=== PATIENT | male | born 1940 | race Caucasian/White ===

== ENCOUNTER 2018-01-30 17:46 | Inpatient (IN) | payer MEDICARE, OTHER ==
[2018-01-30] VITALS (7 sets, daily range): BP systolic 146–175; BP diastolic 75–92; PULSE 67–80; RESP 16–18; TEMP 98.5; O2SAT 96–97
[~2018-01-30] VITALS: Ht 177.8 cm; Wt 89.2 kg
[~2018-01-30 17:46] MED LIST: CHOL1CAP6 PO; CITRTAB8 PO; FOSA70TA PO; HYDR-3129 PO
[2018-01-30] MEDS ORDERED: CALCTAB80 PO (19:49)
[2018-01-30] MEDS ORDERED: MELO15TA20 PO (19:49)
[2018-01-30 20:16] LABS: AUTOMATED NEUTROPHIL # 5.4 TH/MM3 (1.8-7.7); BASOPHIL % 0.5 % (0.0-2.0); EOSINOPHIL # 0.1 TH/MM3 (0-0.4); EOSINOPHIL % 0.6 % (0.0-4.0); HEMATOCRIT 41.5 % (39.0-51.0); HEMOGLOBIN 14.4 GM/DL (13.0-17.0); LYMPH % 25.8 % (9.0-44.0); LYMPHOCYTE # 2.2 TH/MM3 (1.0-4.8); MEAN CELL VOLUME 90.5 FL (80.0-100.0); MEAN CORPUSCULAR HEMOGLOBIN 31.4 PG (27.0-34.0); MEAN CORPUSCULAR HGB CONC 34.7 % (32.0-36.0); MEAN PLATELET VOLUME 7.2 FL (7.0-11.0); MONO % 10.4 % (0.0-8.0); MONOCYTE # 0.9 TH/MM3 (0-0.9); NEUT % 62.7 % (16.0-70.0); PLATELET COUNT 331 TH/MM3 (150-450); RED BLOOD COUNT 4.58 MIL/MM3 (4.50-5.90); RED CELL DISTRIBUTION WIDTH 13.2 % (11.6-17.2); WHITE BLOOD COUNT 8.7 TH/MM3 (4.0-11.0)
[2018-01-30 20:23] LABS: PROTHROMBIN TIME - PATIENT 9.8 SEC (9.8-11.6)
--- NOTE | 2018-01-30 20:38 | RADRPT ---
EXAM DATE/TIME: 01/30/2018 20:01 [facility] COMPARISON: No previous studies available for comparison. INDICATIONS : Weakness. Syncope. MEDICAL HISTORY : None. SURGICAL HISTORY : None. ENCOUNTER: Initial ACUITY: 1 day PAIN SCORE: 2/10 LOCATION: Bilateral chest FINDINGS: A single view of the chest demonstrates the lungs to be symmetrically aerated without evidence of mas s, infiltrate or effusion. The cardiomediastinal contours are unremarkable. Osseous structures are intact. CONCLUSION: No acute disease. Luis Kumar MD FACR on January 30, 2018 at 20:36 Board Certified Radiologist. This report was verified electronically.
[2018-01-30 20:44] LABS: ALBUMIN 3.6 GM/DL (3.4-5.0); AST (GOT) 15 U/L (15-37); BICARBONATE 24.5 MEQ/L (21.0-32.0); BLOOD UREA NITROGEN 20 MG/DL (7-18); CALCIUM 9.2 MG/DL (8.5-10.1); CHLORIDE 102 MEQ/L (98-107); GLOMERULAR FILTRATION RATE 54 ML/MIN (>89); GLUCOSE,RANDOM 101 MG/DL (74-106); MAGNESIUM 2.3 MG/DL (1.5-2.5); SODIUM (NA) 135 MEQ/L (136-145)
[2018-01-30 20:45] LABS: ALT (GPT) 18 U/L (12-78)
[2018-01-30 20:55] LABS: ALKALINE PHOSPHATASE 90 U/L (45-117); TOTAL BILIRUBIN ADULT 0.6 MG/DL (0.2-1.0); TOTAL PROTEIN 7.2 GM/DL (6.4-8.2)
[2018-01-30] MEDS ORDERED: DEXAMETHASONE SOD PHOS 4 MG/ML VIAL IV PUSH ONE (21:00)
[2018-01-30] MEDS ORDERED: ACETAMINOPHEN 325 MG TAB PO PRN (21:30)
[2018-01-30] MEDS ORDERED: POTASSIUM PHOSPHATE INJ 30 MMOL in SODIUM CHLOR 0.9% 250 ML INJ 250 ML IV PRN (21:30)
[2018-01-30] MEDS ORDERED: GLUCAGON 1 MG/ML VIAL OTHER PRN (21:30)
[2018-01-30] MEDS ORDERED: SODIUM CHLORIDE 0.9% FLUSH 10 ML FLUSH IV FLUSH PRN (21:30)
[2018-01-30] MEDS ORDERED: POTASSIUM PHOSPHATE MONOBASIC 500 MG TAB PO PRN (21:30)
[2018-01-30] MEDS ORDERED: POTASSIUM CHLORIDE 25 MEQ EFFERVESCENT TAB PO PRN (21:30)
[2018-01-30] MEDS ORDERED: MAGNESIUM HYDROXIDE SUSP 30 ML CUP PO PRN (21:30)
[2018-01-30] MEDS ORDERED: POTASSIUM CHLOR 20 MEQ PREMIX 100 ML IV PRN ×2 (21:30)
[2018-01-30] MEDS ORDERED: RESP: ALBUTEROL 2.5 MG/3 ML NEB (PRN) INH (21:30)
[2018-01-30] MEDS ORDERED: LACTULOSE SYRUP 20 GM/30 ML CUP PO PRN (21:30)
[2018-01-30] MEDS ORDERED: MISCELLANEOUS NURSING INFORMATION XX SCH (21:30)
[2018-01-30] MEDS ORDERED: CHLORHEXIDINE GLUCONATE 2 % 1 PACK (2 CLOTHS) TOP PRN (21:30)
[2018-01-30] MEDS ORDERED: ONDANSETRON HCL 4 MG/2 ML VIAL IV PUSH PRN (21:30)
[2018-01-30] MEDS ORDERED: MAGNESIUM SULFATE INJ 2 GM in SODIUM CHLORIDE 0.9% INJ 96 ML IV PRN (21:30)
[2018-01-30] MEDS ORDERED: SODIUM PHOSPHATE INJ 30 MMOL in SODIUM CHLOR 0.9% 250 ML INJ 240 ML IV PRN (21:30)
[2018-01-30] MEDS ORDERED: DEXTROSE 50% IN WATER 50 ML VIAL(D50) IV PUSH PRN (21:30)
[2018-01-30] MEDS ORDERED: POTASSIUM CHLOR 40 MEQ PREMIX 100 ML IV PRN ×2 (21:30)
[2018-01-30] MEDS ORDERED: POTASSIUM PHOSPHATE MONOBASIC 500 MG TAB PO/TUBE PRN (21:30)
[2018-01-30] MEDS ORDERED: MAGNESIUM OXIDE 400 MG TAB PO PRN (21:30)
[2018-01-30] MEDS ORDERED: MAGNESIUM SULFATE INJ 4 GM in SODIUM CHLORIDE 0.9% INJ 92 ML IV PRN (21:30)
[2018-01-30] MEDS ORDERED: SENNOSIDES 8.6 MG TAB PO PRN (21:30)
[2018-01-30] MEDS ORDERED: BISACODYL 10 MG SUPP RECTAL PRN (21:30)
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
[2018-01-30] MEDS ORDERED: GADODIAMIDE PF 287 MG/ML 5 ML VIAL (for RAD MRI) IVCONTRAST ONE (21:49)
--- NOTE | 2018-01-30 22:22 | RADRPT ---
EXAM DATE/TIME: 01/30/2018 21:32 [facility] COMPARISON: No previous studies available for comparison. INDICATIONS : Left sided weakness. Tumor CONTRAST: 18 cc Omniscan (gadodiamide) IV MEDICAL HISTORY : Hypertension. Arthritis. SURGICAL HISTORY : Total knee replacement, right. Back sx. ENCOUNTER: Initial ACUITY: 1 day PAIN SCORE: Nonresponsive. LOCATION: cranial TECHNIQUE: Multiplanar, multisequence MRI of the brain was performed both prior to and following the administrat ion of paramagnetic contrast. FINDINGS: Large ring-enhancing mass in the right proximal region with extensive edema and mass effect. There i s 1.2 cm of [id number] midline shift with effacement of the right lateral ventricle. Enhancement extends to the ventricle with areas of subtle enhancement of the ventricular wall suggest ing seeding. Tumor does extend to the dural surface in the proximal upper region with dural involvement as well The left hemisphere is unremarkable Posterior fossa appears normal CONCLUSION: Large ring-enhancing mass right occipital region region measuring 5 cm x 5 cm.. Mass extends from ventricle to the dural surface with involvement of both. 1.2 cm right to left midline shift Glioblastoma is suspected. Luis Kumar MD FACR on January 30, 2018 at 22:13 Board Certified Radiologist. This report was verified electronically.
[2018-01-30] MEDS: NS + KCL 20 MEQ INJ 1,000 ML IV SCH (22:38)
[2018-01-31] VITALS (11 sets, daily range): BP systolic 131–173; BP diastolic 69–94; PULSE 58–80; RESP 14–26; TEMP 97.7–98.6; O2SAT 95–97
[2018-01-31] MEDS: CHLORHEXIDINE GLUCONATE 2 % 1 PACK (2 CLOTHS) TOP SCH (04:00)
[2018-01-31] MEDS: DEXAMETHASONE SOD PHOS 4 MG/ML VIAL IV PUSH SCH ×5 (04:25→23:48)
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
[2018-01-31] MEDS: INSULIN ASPART SUPPLEMENTAL SCALE SQ SCH ×4 (08:20→21:00)
[2018-01-31] MEDS: levETIRAcetam INJ 500 MG in SODIUM CHLORIDE 0.9% INJ 100 ML IV SCH ×2 (09:55→21:01)
[2018-01-31] MEDS: DOCUSATE SODIUM 50 MG/SENNA 8.6 MG TAB PO SCH ×2 (09:56→21:01)
[2018-01-31] MEDS: PANTOPRAZOLE SOD 40 MG DELAYED RELEASE TAB PO SCH (09:56)
[2018-01-31] MEDS: NS + KCL 20 MEQ INJ 1,000 ML IV SCH (09:57)
[2018-01-31] MEDS: SODIUM CHLORIDE 0.9% FLUSH 10 ML FLUSH IV FLUSH SCH ×2 (09:57→21:01)
[2018-01-31] MEDS ORDERED: LABETALOL HCL 100 MG/20 ML VIAL IV PUSH PRN (10:15)
[2018-01-31] MEDS ORDERED: PROMETHAZINE INJ 25 MG/ML VIAL IM PRN (10:15)
[2018-01-31] MEDS ORDERED: ACETAMINOPHEN/HYDROcodone 325 MG/10 MG TAB PO PRN ×2 (10:15)
[2018-01-31] MEDS ORDERED: BISACODYL 10 MG SUPP RECTAL PRN (10:15)
[2018-01-31] MEDS ORDERED: RESP: ALBUTEROL 2.5 MG/3 ML NEB (PRN) NEB (10:15)
[2018-01-31] MEDS ORDERED: LORazepam 2 MG/ML VIAL IV PUSH PRN (10:15)
[2018-01-31] MEDS ORDERED: cloNIDine HCL 0.1 MG TAB PO PRN (10:15)
[2018-01-31] MEDS ORDERED: ACETAMINOPHEN 325 MG TAB PO PRN (10:15)
[2018-01-31] MEDS ORDERED: ALUMINUM/MAGNESIUM/SIMETH 30 ML CUP PO PRN (10:15)
[2018-01-31] MEDS ORDERED: niCARdipine INJ 25 MG in SODIUM CHLOR 0.9% 250 ML INJ 240 ML IV PRN (10:15)
[2018-01-31] MEDS ORDERED: MENTHOL LOZENGE BUCCAL PRN (10:15)
[2018-01-31] MEDS ORDERED: MORPHINE SULFATE 2 MG/ML SYRINGE IV PUSH PRN (10:15)
--- NOTE | 2018-01-31 11:11 | MB ---
cc: Anjum Gallegos MD, James R DO DATE: 01/31/2018 REASON FOR CONSULTATION: Right brain mass. HISTORY OF PRESENT ILLNESS: This is a 77-year-old, right-handed, gentleman with about a 1-week history of confusion and left-sided weakness along with visual loss. Symptoms have progressed the last few days and he was seen by his primary care physician, who ordered a CT scan of the head which was done in the outpatient imaging center revealed a right-sided brain mass. He was informed to come to the emergency room last evening. He also relates intermittent headaches in the frontal aspect and sinus aspect and has had a cough. relates that generally he does not complain. He has a chronic lower back pain at times, sciatica involving both lower extremities. IMAGING STUDIES: MRI scan of the brain also obtained, which reveals a large close to 6.4 cm right occipital lobe mass, which extends into the parietal lobe and temporal lobe involving from the cortical surface down to the ventricle and close to the mid brain with irregular enhancement and central areas of necrosis with significant surrounding edema and mass effect, midline shift. He was started on Decadron for the edema and Keppra for seizure prophylaxis. PAST MEDICAL HISTORY: S1 hemilaminectomy in 10/2015, right knee replacement. MEDICATIONS: Meloxicam p.r.n., and calcium and vitamin D supplements. ALLERGIES: No known drug allergies. SOCIAL HISTORY: He does drinks alcohol on a rare occasion. He does not smoke. He is here with his and son. REVIEW OF SYSTEMS: Positive for headaches, positive for left-sided visual loss. Positive for left side weakness in the arm and legs with difficulty controlling his left hand and unsteady walking because of the weakness. Complains of chronic low back pain, complaint of sciatica involving the right leg but varies from left to right at times. He still works out 3 times a week. Complains of nonproductive cough, but no hemoptysis. Denies any chest pain or shortness of breath. Denies any abdominal pain. Denies any nausea or vomiting. Denies any loose stools or bloody stools. No fevers or chills. No recent weight gain or weight loss. No incontinence. He has had some difficulty with concentration and word finding and confused speech according to , which has been going on for the last 5 days. Otherwise, the rest of the review of systems is negative. LABORATORY STUDIES: White blood cell count 8.7, hemoglobin 14.4, platelet count 331. PT 9.8, INR 1.0, PTT 23.9. Sodium 135, potassium 3.9, BUN 20, creatinine 1.3, glucose 101. FAMILY HISTORY: Unremarkable. PHYSICAL EXAMINATION: VITAL SIGNS: Temperature 98.5, pulse is 74, respiratory rate 24, blood pressure 141/69, oxygen saturation 96% on room air. HEENT: Head is normocephalic, atraumatic. Negative Pinzon or raccoon sign. NECK: Supple with trachea midline. No guarding or rigidity. HEENT: No nasal drainage or drainage from his ears. Mucous membranes are moist and pink. LUNGS: Clear to auscultation bilaterally. HEART: Regular rate and rhythm. Normal S1, S2. No murmurs. ABDOMEN: Soft, nontender, positive bowel sounds. No hepatosplenomegaly. EXTREMITIES: No cyanosis or edema. SKIN: No rashes or ecchymosis or breakdown or pustules. NEUROLOGIC: He is awake, alert. He knows he is in the hospital, not fully oriented to the date and states his name. Pupils are equal and reactive. Extraocular movements are intact. Face has a slight left-sided facial droop. Tongue is midline. He has a left hemiparesis, 4-/5 in the left upper extremity and 4/5 in the left lower extremity. Right-sided arm and leg has good strength. Positive Babinski on the left side. He has a left homonymous hemianopsia, with visual field loss. He also tends to neglect the left side. Light touch sensation relates that he does not feel as strongly on the left side compared to the right side. He also has difficulty following complex commands, although can follow simple commands intermittently with moderate aphasia. IMPRESSION: Large right posterior temporoparietal occipital lobe mass extending from the cortex to the subcortical deep white matter structures down to the ventricle with finger-like projections and enhancement and necrotic areas along with associated edema. 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 Other possibilities in the differential diagnosis include metastases, as well as abscess and inflammatory process, which are less likely. PLAN: The patient will be monitored closely with neuro checks. Keep his head of bed elevated at 30 degrees. Decadron will be continued for the cerebral swelling and Keppra for seizure prophylaxis. Mechanical deep venous thrombosis prophylaxis along with a gastrointestinal source as a prophylaxis. He is recommended a right craniotomy with excisional biopsy/debulking. Aggressive resection will not be feasible given the large mass and very infiltrative nature with cortical and subcortical extension. Further treatment options will depend on the final pathologic confirmation of this brain mass. I have discussed the findings at length with the patient as well as his and son and answered all their questions. They understand and are in agreement and we will plan for the surgery early next week. MD LYN Raya/KERRY , 10:31 AM , 11:09 AM
[2018-01-31] MEDS ORDERED: DIATRIZOATE MEGLUM/DIATRIZOATE SOD 9 ML CUP PO ONE (13:30)
--- NOTE | 2018-01-31 14:22 | MB ---
cc: Maira Tovar MD, Ricardo PA DATE: 01/31/2018 REFERRING PHYSICIAN: CHRISTOPHER Ash CHIEF COMPLAINT: Harpreet Zimmerman requested consultation for Mr. Krishna regarding MASTIC FLOOR LAYER lesion. HISTORY OF PRESENT ILLNESS: Mr. Krishna is a 77-year-old man with history of radiculopathy, back pain. Otherwise, he is healthy. He is active, going to the gym several times a week. His family noticed on 01/25/2018 that he was driving abnormal. He looked different. He had some nonspecific visual change on the right side. Outpatient workup included a CT scan of the brain with and without contrast on 01/30/2018 which showed a large mass with patchy enhancement. It was ill-defined with significant vasogenic edema with right to left shift. It was consistent with a malignant process such as a glioma. Neurosurgical consultation was recommended. He was promptly referred to the hospital for evaluation. Mr. Krishna is well known to Dr. Gallegos. He has had a laminectomy and medial fasciotomy in 2016. He was comfortable to see Dr. Gallegos in the hospital. He was started on Decadron in the emergency room. He is feeling better. Mr. Krishna describes having good strength. He denies any vision changes at present. Denies any fevers, chills, night sweats or weight loss. He was feeling well until about Easter. He denies any nausea or vomiting. He trusts Dr. Gallegos and is planning to proceed with a surgical biopsy even though full resection may not be possible. PAST MEDICAL HISTORY: Radiculopathy, back pain. PAST SURGICAL HISTORY: Right knee replacement, L5-S1 hemilaminectomy. FAMILY HISTORY: Father of esophageal/lung cancer at age 58. Mother of old at age 89. SOCIAL HISTORY: He is a lifetime nonsmoker. He is , lives with his . He denies any alcohol or illicit drug use. ALLERGIES: NO KNOWN DRUG ALLERGIES. CURRENT MEDICATIONS: 1. Lorazepam p.r.n. 2. Phenergan. 3. Clifford. 4. Viviane-Colace. 5. Protonix. 6. Keppra. PHYSICAL EXAMINATION: VITAL SIGNS: Temperature 98.5, heart rate 74, respiratory rate 24, blood pressure 141/69, saturation 97%. GENERAL: Mr. Krishna is a well-developed, well-nourished, robust, elderly man with a full head of lush white hair. HEENT: His pupils are round, reactive to light and accommodation. Oropharynx is clear. NECK: Supple. LUNGS: Clear. CARDIOVASCULAR: Reveals normal rate and rhythm. ABDOMEN: Large and benign. EXTREMITIES: No edema. NEUROLOGIC: He appears to have good strength of his upper extremity. There is a slight left facial droop. Initially noted left-sided weakness is less evident. LABORATORY DATA: CBC is normal. CMP, normal liver function and TSH. ASSESSMENT AND PLAN: Mr. Krishna is a 77-year-old man with no significant past history. He has had no previous illness, injury. Denies any history of malignant melanoma or smoking. He has an MRI of the brain from 01/30/2018 which shows a ring-enhancing mass, right occipital region measuring 5 x 5 cm. The mass extends from the ventricle to the dural surface with involvement of both. There is a right to left midline shift. He is pending surgery for definitive diagnosis. Further recommendations depend on the above. We consider consulting with Radiation Oncology pending on the results of the biopsy. We are suspecting from the images, this is a glioma. Given the nonsmoker status, the possibility of fabrizio cancer is less likely. CT scan of the chest, abdomen and pelvis will be coordinated. MD RAFY Green/KERRY , 01:02 PM , 02:21 PM
--- NOTE | 2018-01-31 19:28 | EKG ---
Date Performed: 01/30/2018 Time Performed: 22:21:36 PTAGE: 77 years EKG: Sinus rhythm WITH FIRST DEGREE AV BLOCK INDETERMINATE AXIS RIGHT BUNDLE BRANCH BLOCK Since the previous tracing, no significant change noted ABNORMAL ECG PREVIOUS TRACING : 11/09/2015 11.46 DOCTOR: Lyndon Jimenez Interpretating Date/Time 01/31/2018 19:28:01
--- NOTE | 2018-01-31 21:11 | RADRPT ---
EXAM DATE/TIME: 01/31/2018 20:33 [facility] COMPARISON: MRI BRAIN W & W/O CONTRAST, January 30, 2018, 21:32. INDICATIONS : Mass, evaluate for metastasis of brain mass. ORAL CONTRAST: Prescribed oral contrast ingested. RADIATION DOSE: 18.25 CTDIvol (mGy) ; Combined studies - Thorax/Abdomen/Pelvis MEDICAL HISTORY : Hypertension. scoliosis SURGICAL HISTORY : None. ENCOUNTER: Initial ACUITY: 1 day PAIN SCALE: 0/10 LOCATION: Bilateral abdomen TECHNIQUE: Volumetric scanning of the abdomen and pelvis was performed. Using automated exposure control and ad justment of the mA and/or kV according to patient size, radiation dose was kept as low as reasonably achievable to obtain optimal diagnostic quality images. DICOM format image data is available electro nically for review and comparison. FINDINGS: LOWER LUNGS: The visualized lower lungs are clear. LIVER: There are 2 small 1 cm hypodensities seen in the liver in the lateral segment of the left lobe and th e anterior segment of the right lobe of the liver. SPLEEN: Normal size without lesion. PANCREAS: Within normal limits. KIDNEYS: Bilateral nonobstructing renal stones are seen measuring up to 1.2 cm. The largest stone is at the in ferior left collecting system. Hydronephrosis is not seen. The ureters are unremarkable. ADRENAL GLANDS: Within normal limits. VASCULAR: There is no aortic aneurysm. BOWEL/MESENTERY: There are few scattered colonic diverticula. ABDOMINAL WALL: Within normal limits. RETROPERITONEUM: There is no lymphadenopathy. BLADDER: No wall thickening or mass. REPRODUCTIVE: Prostatic calcifications are seen. INGUINAL: There is no lymphadenopathy or hernia. MUSCULOSKELETAL: There are compressive changes at the T12, L2, and L5 vertebral bodies. There is degenerative change i n the lumbar spine. CONCLUSION: 1. No evidence of metastatic disease or primary mass. 2. Nonobstructing renal stones seen bilaterally. 3. Degenerative change and compressive changes in the lower thoracic and lumbar spine. Underlying bon e lesions are not seen. 4. Small hypodensities in the liver. Statistically, they likely represent cysts or hemangiomas. These are nonspecific on this noncontrast CT examination. Damian Wu MD on January 31, 2018 at 21:01 Board Certified Radiologist. This report was verified electronically.
--- NOTE | 2018-01-31 21:14 | RADRPT ---
EXAM DATE/TIME: 01/31/2018 20:33 [facility] COMPARISON: No previous studies available for comparison. INDICATIONS : Mass, evaluate for metastasis of brain mass. RADIATION DOSE: 18.25 CTDIvol (mGy) ; Combined studies - Thorax/Abdomen/Pelvis MEDICAL HISTORY : Hypertension. scoliosis SURGICAL HISTORY : None. ENCOUNTER: Initial ACUITY: 1 day PAIN SCALE: 0/10 LOCATION: Bilateral chest TECHNIQUE: Volumetric scanning of the chest was performed. Using automated exposure control and adjustment of t he mA and/or kV according to patient size, radiation dose was kept as low as reasonably achievable to obtain optimal diagnostic quality images. DICOM format image data is available electronically for r eview and comparison. Follow-up recommendations for detected pulmonary nodules are based at a minimum on nodule size and pa tient risk factors according to Fleischner Society Guidelines. FINDINGS: LUNGS: There is no consolidation or pneumothorax. No concerning pulmonary nodule is visualized. PLEURAE: There is no pleural thickening or pleural effusion. MEDIASTINUM: The heart and great vessels demonstrate no acute abnormality. There is no mediastinal or hilar lymph adenopathy. AXILLAE: Within normal limits. No lymphadenopathy. MUSCULOSKELETAL: There is a severe compression deformity of the T12 vertebral body. Focal bone lesions are not seen. MISCELLANEOUS: The visualized upper abdominal organs demonstrate no acute abnormality. Nonobstructing renal stones a re seen bilaterally. CONCLUSION: 1. No primary or metastatic lesion is seen. 2. Compression deformity T12. Damian Wu MD on January 31, 2018 at 21:09 Board Certified Radiologist. This report was verified electronically.
[2018-02-01] VITALS (12 sets, daily range): BP systolic 113–130; BP diastolic 62–76; PULSE 50–86; RESP 16–27; TEMP 97.6–98.6; O2SAT 94–97
[2018-02-01] MEDS: CHLORHEXIDINE GLUCONATE 2 % 1 PACK (2 CLOTHS) TOP SCH (04:00)
[2018-02-01] MEDS: DEXAMETHASONE SOD PHOS 4 MG/ML VIAL IV PUSH SCH ×3 (05:56→18:03)
--- NOTE | 2018-02-01 08:44 | HHI.NSPN ---
(Max Pinon) History Chief Complaint: brain mass, confusion. (Max Pinon) Interval History This is a 77-year-old, right-handed, gentleman with about a 1-week history of confusion and left-sided weakness along with visual loss. Symptoms have progressed the last few days and he was seen by his primary care physician, who ordered a CT scan of the head which was done in the outpatient imaging center revealed a right-sided brain mass. He was informed to come to the emergency room last evening. He also relates intermittent headaches in the frontal aspect and sinus aspect and has had a cough. relates that generally he does not complain. He has a chronic lower back pain at times, sciatica involving both lower extremities. 02/01/18: Pt awakens to voice. Son at bedside states the patient was very confused this morning trying to get out of bed. He became very agitated and confused. He is currently calm and resting in bed although still some confusion. (Max Pinon) Review of Systems General: Negative for: fever, chills, insomnia Respiratory: Negative for: shortness of breath, cough, sputum Cardiovascular: Negative for: chest pain Gastrointestinal: Negative for: nausea, vomitting, diarrhea, constipation ( Max Pinon) Exam Results Vital Signs Date Time Temp Pulse Resp B/P (MAP) Pulse Ox O2 Delivery O2 Flow Rate FiO2 02/01/18 06:00 54 02/01/18 04:00 98.6 20 113/62 (79) 94 01/31/18 19:00 Room Air Intake and Output 02/01/18 02/01/18 02/01/18 07:59 15:59 23:59 Output Total 600 ml Balance -600 ml (Max Pinon) Physical Examination General: Patient resting in bed awakens to voice. He is confused but not agitated at the moment. Eyes: Pupils equal sclera anicteric. Respiratory: Clear to auscultation bilaterally Heart: Normal sinus rhythm no murmurs. Abdomen: Soft positive bowel sounds Skin: No cyanosis or erythema Muscle: He moves all 4 extremities. He has left hemiparesis compared to the right side. Neuro: Patient awakens to voice. He follows simple commands. He has mild to moderate expressive aphasia. Pupils are 3 mm bilaterally reactive bilaterally. (Max Pinon) Lab, Micro, Other Results Last Impressions Chest CT 01/31/18 0000 Signed Impressions: Service Date/Time: Wednesday, January 31, 2018 20:33 - CONCLUSION: 1. No primary or metastatic lesion is seen. 2. Compression deformity T12. Damian Wu MD Abdomen/Pelvis CT 01/31/18 0000 Signed Impressions: Service Date/Time: Wednesday, January 31, 2018 20:33 - CONCLUSION: 1. No evidence of metastatic disease or primary mass. 2. Nonobstructing renal stones seen bilaterally. 3. Degenerative change and compressive changes in the lower thoracic and lumbar spine. Underlying bone lesions are not seen. 4. Small hypodensities in the liver. Statistically, they likely represent cysts or hemangiomas. These are nonspecific on this noncontrast CT examination. Damian Wu MD Chest X-Ray 01/30/181938 Signed Impressions: Service Date/Time: Tuesday, January 30, 2018 20:01 - CONCLUSION: No acute disease. Luis Kumar MD FACR Brain MRI 01/30/18 0000 Signed Impressions: Service Date/Time: Tuesday, January 30, 2018 21:32 - CONCLUSION: Large ring-enhancing mass right occipital region region measuring 5 cm x 5 cm.. Mass extends from ventricle to the dural surface with involvement of both. 1.2 cm right to left midline shift Glioblastoma is suspected. Luis Kumar MD FACR (Max Pinon) Medical Decision Making Impression and Plan A: Large right posterior temporoparietal occipital lobe mass extending from the cortex to the subcortical deep white matter structures down to the ventricle with finger-like projections and enhancement and necrotic areas along with associated edema. 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 Other possibilities in the differential diagnosis include metastases, as well as abscess and inflammatory process, which are less likely. PLAN: Continue with neuro checks Continue with Decadron Continue with SCDs for DVT prophylaxis and Protonix for GI prophylaxis. Dr. Gallegos has discussed with family surgery. He has recommended a right craniotomy with excisional biopsy/debulking. Aggressive resection will not be feasible given the large mass and very infiltrative nature with cortical and subcortical extension. Further treatment options will depend on the final pathologic confirmation of this brain mass. I discussed with another son at the bedside this child welfare director. (Max Pinon) Attending Statement The exam, history, and the medical decision-making described in the above note were completed with the assistance of the mid-level provider. I reviewed and agree with the findings presented. I attest that I had a [id number] encounter with the patient on the same day, and personally performed and documented my assessment and findings in the medical record. Discussed the procedure right craniotomy with the excisional biopsy along with the risks and benefits involved. Patient and his and son are requesting to proceed and gave informed consent and accordingly surgery scheduled for tomorrow morning. (Anjum Gallegos MD) Max Pinon Feb 01, 2018 08:44 Anjum Gallegos MD Feb 01, 2018 15:48
[2018-02-01] MEDS: INSULIN ASPART SUPPLEMENTAL SCALE SQ SCH ×4 (09:00→21:00)
[2018-02-01] MEDS: DOCUSATE SODIUM 50 MG/SENNA 8.6 MG TAB PO SCH ×2 (09:58→20:16)
[2018-02-01] MEDS: levETIRAcetam INJ 500 MG in SODIUM CHLORIDE 0.9% INJ 100 ML IV SCH ×2 (09:58→20:16)
[2018-02-01] MEDS: PANTOPRAZOLE SOD 40 MG DELAYED RELEASE TAB PO SCH (09:58)
[2018-02-01] MEDS: SODIUM CHLORIDE 0.9% FLUSH 10 ML FLUSH IV FLUSH SCH ×2 (09:58→20:16)
--- NOTE | 2018-02-01 13:05 | ECHRPT ---
Indication: CONCLUSIONS Normal left ventricular size. Mild concentric left ventricular hypertrophy. Doppler parameters are consistent with impaired left ventricular relaxtion (grade 1 diastolic dysfun ction). The right ventricle is mildly dilated. The right ventricular systoilc function is normal. The pulmonary valve is not well visualized. The left ventricular systolic function is normal with an estimated ejection fraction in the range of 60-65%. BP: / HR: Rhythm: MEASUREMENTS (Male / Female) Normal Values Technical Quality: 2D ECHO LV Diastolic Diameter PLAX 4.0 cm 4.2 - 5.9 / 3.9 - 5.3 cm LV Systolic Diameter PLAX 3.1 cm IVS Diastolic Thickness 0.9 cm 0.6 - 1.0 / 0.6 - 0.9 cm LVPW Diastolic Thickness 0.7 cm 0.6 - 1.0 / 0.6 - 0.9 cm LV Relative Wall Thickness 0.4 RV Internal Dim ED PLAX 2.4 cm LA Systolic Diameter LX 3.5 cm 3.0 - 4.0 / 2.7 - 3.8 cm DOPPLER Mitral E Point Velocity 58.2 cm/s Mitral A Point Velocity 76.0 cm/s Mitral E to A Ratio 0.8 TR Peak Velocity 141.0 cm/s TR Peak Gradient 8.0 mmHg FINDINGS LEFT VENTRICLE Normal left ventricular size. Mild concentric left ventricular hypertrophy. The left ventricular systolic function is normal with an estimated ejection fraction in the range of 60-65%. Doppler parameters are consistent with impaired left ventricular relaxtion (grade 1 diastolic dysfun ction). RIGHT VENTRICLE The right ventricle is mildly dilated. The right ventricular systoilc function is normal. LEFT ATRIUM The left atrial size is normal. RIGHT ATRIUM The right atrial size is normal. ATRIAL SEPTUM Normal atrial septal thickness without atrial level shunting by limited color doppler interrogation. AORTA The aortic root and proximal ascending aorta are normal in size on limited imaging. MITRAL VALVE Structurally normal mitral valve. No mitral valve stenosis or regurgitation. AORTIC VALVE Trileaflet aortic valve. No aortic valve stenosis or regurgitation. TRICUSPID VALVE Structurally normal tricuspid valve. No tricuspid valve stenosis or regurgitation. PULMONARY VALVE The pulmonary valve is not well visualized. VESSELS The inferior vena cava is normal in size. PERICARDIUM No pericardial effusion. Foreign Puentes MD, FACC (Electronically Signed) Final Date:01 February 2018 13:04
[2018-02-02] VITALS (11 sets, daily range): BP systolic 116–141; BP diastolic 60–76; PULSE 49–76; RESP 17–26; TEMP 97.8–98.2; O2SAT 94–96
[2018-02-02] MEDS: DEXAMETHASONE SOD PHOS 4 MG/ML VIAL IV PUSH SCH ×4 (00:10→19:00)
[2018-02-02] MEDS: CHLORHEXIDINE GLUCONATE 2 % 1 PACK (2 CLOTHS) TOP SCH (04:00)
[2018-02-02] MEDS: INSULIN ASPART SUPPLEMENTAL SCALE SQ SCH ×4 (08:00→21:29)
[2018-02-02] MEDS: SODIUM CHLORIDE 0.9% FLUSH 10 ML FLUSH IV FLUSH SCH ×2 (08:45→21:00)
[2018-02-02] MEDS: DOCUSATE SODIUM 50 MG/SENNA 8.6 MG TAB PO SCH ×2 (08:45→21:00)
[2018-02-02] MEDS: PANTOPRAZOLE SOD 40 MG DELAYED RELEASE TAB PO SCH (08:45)
[2018-02-02] MEDS: levETIRAcetam INJ 500 MG in SODIUM CHLORIDE 0.9% INJ 100 ML IV SCH ×2 (08:45→21:00)
[2018-02-02] MEDS ORDERED: GENTAMICIN SULFATE 80 MG/2 ML VIAL ONE ×2 (10:51→13:44)
[2018-02-02] MEDS ORDERED: GELFOAM SIZE 100 ONE ×2 (10:51→13:44)
[2018-02-02] MEDS ORDERED: THROMBIN (TOPICAL) 5,000 UNIT VIAL ONE ×2 (10:52→13:44)
[2018-02-02] MEDS ORDERED: BUPIVACAINE/EPINEPHRINE 0.5% 50 ML VIAL ONE ×2 (10:52→13:44)
[2018-02-02] MEDS ORDERED: VANCOMYCIN HCL 1000 MG VIAL ONE ×2 (11:38→13:43)
[2018-02-02] MEDS ORDERED: GLYCOPYRROLATE 1 MG/5 ML SYRINGE IV PUSH ONE (12:00)
[2018-02-02] MEDS ORDERED: ONDANSETRON HCL 4 MG/2 ML VIAL IV ONE (12:00)
[2018-02-02] MEDS ORDERED: PROPOFOL 200 MG/20 ML AMP IV ONE (12:00)
[2018-02-02] MEDS ORDERED: PHENYLEPH/NS 1000 MCG/10 ML SYR IV ONE (12:00)
[2018-02-02] MEDS ORDERED: LIDOCAINE HCL 1% PF 5 ML SYRINGE OTHER ONE (12:00)
[2018-02-02] MEDS ORDERED: ROCURONIUM INJ 50 MG/5 ML SYRINGE IV PUSH ONE (12:00)
[2018-02-02] MEDS ORDERED: DEXAMETHASONE SOD PHOS 4 MG/ML VIAL IV ONE (12:00)
[2018-02-02] MEDS ORDERED: ePHEDrine/NS 25 MG/5 ML SYRINGE IV ONE (12:00)
[2018-02-02] MEDS ORDERED: NEOSTIGMINE 5 MG/5 ML SYRINGE IV PUSH ONE (12:00)
[2018-02-02] MEDS ORDERED: levETIRAcetam 500 MG/5 ML VIAL IV ONE (12:03)
[2018-02-02] MEDS ORDERED: SODIUM CHLORIDE 0.9% INJ 100 ML ONE (12:05)
[2018-02-02] MEDS ORDERED: ACETAMINOPHEN 1000 MG/100 ML 0 ML IV ONE (12:26)
--- NOTE | 2018-02-02 13:39 | OTSOAPIP ---
TIME SESSION COMPLETED: PM TREATMENT TIME: 0 MINS. CHART REVIEWED. PATIENT WAS NOT AVAILABLE DUE TO BEING THE OPERATING ROOM TO UNDERGO RIGHT CRANIOTOMY FOR TUMOR RESECTION. PLAN: WILL SEE PATIENT NEXT TREATMENT DAY Therapist: MARISA YE/Di Signature on file
--- NOTE | 2018-02-02 13:55 | PD.OP ---
Eric Santanajune, DO Operative Report Date of Surgery: Feb 02, 2018 Preoperative Diagnosis: Right the temporoparietal occipital lobe mass Postoperative Diagnosis: High-grade glioma Procedure: Right temporoparietal craniotomy for resection of mass; BrainLab stereotactic navigation use; microsurgical technique Anesthesia: Gen. endotracheal by Diane bee Surgeon: Anjum Gallegos M.D. Photogrammetry Airplane Pilot(s): Jennifer Loera Operation and Findings: Following initiation of general endotracheal anesthesia the patient had invasive lines and An catheter in place along with sequential compression device. A gram of vancomycin and Keppra as well as 10 mg Decadron was administered intravenously and he was positioned laterally with the right shoulder elevated with an axillary roll roll and head secured in the [place] 3 pin headrest. The BrainLab navigation system was then registered with external landmarks and good accuracy confirmed. A right parietal temporal incision made after the head shaved and prepped with ChloraPrep and sterilely draped in the usual sterile fashion. Incision was then made after infiltrating the scalp was 0.5% Marcaine with epinephrine solution a skin incision made and Stanislav clips were used at the scalp edges for hemostasis and the flap retracted. With an automated event marketing coordinator a posterior temporal bur hole made and then with the craniotome the bone flap was elevated. The dura opened in a cruciate format and bone holes placed in the craniotomy edges with 4-0 Nurolon dural tacking stitches for hemostasis. The mass approach the cortical surface more posteriorly on the temporoparietal area and pial blackish brownish discoloration was noted. Resection of this mass was undertaken using microtechnique microscope magnification along with the BrainLab navigation guidance. The mass extended up to the pial surface but there was no distinct border between the brain and the mass and was very infiltrative in nature. Initial debulking undertaken in the middle where the vas was grayish in coloration and somewhat necrotic and subsequent circumferential dissection although more superiorly this was extending into the more cortex and subcortical motor pathways so very aggressive gross total resection was not undertaken. Fresh frozen specimen sent was consistent with high-grade glioma and rest of the specimens were sent for permanent pathology sections although most of the mass was suctioned out. Bipolar cautery used for hemostasis in the resection bed which was then lined with Surgicel and no bleeding was encountered at this point. Cavity was filled with saline solution and the dura approximately using 4 Nurolon sutures with a central dural tacking stitch. Bone flap approximated using [place] mini plates and bur hole covers. The area was then copiously irrigated. The temporalis fascia was approximated and using 2-0 Vicryl sutures and the galea reapproximated using 3-0 Vicryl interrupted sutures and final scalp closure was with michael. The Diaz head was then removed and a sterile pressing dressing applied. There were no intraoperative complications and all sponge and needle count was correct at the end of the procedure. Estimated blood loss about 100 cc. Patient was extubated and taken to the recovery room. Anjum Gallegos MD Feb 02, 2018 13:55
[2018-02-02 14:53] LABS: AUTOMATED NEUTROPHIL # 9.9 TH/MM3 (1.8-7.7); HEMATOCRIT 40.4 % (39.0-51.0); HEMOGLOBIN 13.6 GM/DL (13.0-17.0); LYMPH % 7.2 % (9.0-44.0); LYMPHOCYTE # 0.8 TH/MM3 (1.0-4.8); MEAN CELL VOLUME 91.5 FL (80.0-100.0); MEAN CORPUSCULAR HEMOGLOBIN 30.7 PG (27.0-34.0); MEAN CORPUSCULAR HGB CONC 33.5 % (32.0-36.0); MEAN PLATELET VOLUME 7.3 FL (7.0-11.0); MONO % 3.8 % (0.0-8.0); MONOCYTE # 0.4 TH/MM3 (0-0.9); PLATELET COUNT 297 TH/MM3 (150-450); RED BLOOD COUNT 4.42 MIL/MM3 (4.50-5.90); RED CELL DISTRIBUTION WIDTH 13.8 % (11.6-17.2); WHITE BLOOD COUNT 11.2 TH/MM3 (4.0-11.0)
[2018-02-02 15:27] LABS: BICARBONATE 24.1 MEQ/L (21.0-32.0); CALCIUM 7.9 MG/DL (8.5-10.1); CREATININE 1.1 MG/DL (0.60-1.30); MAGNESIUM 2.2 MG/DL (1.5-2.5)
[2018-02-03] VITALS (9 sets, daily range): BP systolic 114–150; BP diastolic 65–84; PULSE 50–76; RESP 17–33; TEMP 97.5–98.7; O2SAT 91–95
[2018-02-03] MEDS: DEXAMETHASONE SOD PHOS 4 MG/ML VIAL IV PUSH SCH ×5 (00:27→23:46)
[2018-02-03] MEDS: CHLORHEXIDINE GLUCONATE 2 % 1 PACK (2 CLOTHS) TOP SCH (04:00)
[2018-02-03] MEDS: INSULIN ASPART SUPPLEMENTAL SCALE SQ SCH ×4 (08:00→21:00)
--- NOTE | 2018-02-03 09:24 | HHI.NSPN ---
(Max Pinon) History Chief Complaint: brain mass, confusion. (Max Pinon) Interval History This is a 77-year-old, right-handed, gentleman with about a 1-week history of confusion and left-sided weakness along with visual loss. Symptoms have progressed the last few days and he was seen by his primary care physician, who ordered a CT scan of the head which was done in the outpatient imaging center revealed a right-sided brain mass. He was informed to come to the emergency room last evening. He also relates intermittent headaches in the frontal aspect and sinus aspect and has had a cough. relates that generally he does not complain. He has a chronic lower back pain at times, sciatica involving both lower extremities. 02/01/18: Pt awakens to voice. Son at bedside states the patient was very confused this morning trying to get out of bed. He became very agitated and confused. He is currently calm and resting in bed although still some confusion. 02/03/18: Pt s/p right temporoparietal craniotomy for mass resection on 02/02/18. Pt mild confusion but pleasant. He follows commands well. Speech mild aphasia. Mild incisional soreness. Son at bedside thinks he will be okay without narcotic medication. (Max Pinon) Review of Systems General: Negative for: fever, chills, insomnia Respiratory: Negative for: shortness of breath, cough, sputum Cardiovascular: Negative for: chest pain Gastrointestinal: Negative for: nausea, vomitting, diarrhea, constipation ( Max Pinon) Exam Results Vital Signs Date Time Temp Pulse Resp B/P (MAP) Pulse Ox O2 Delivery O2 Flow Rate FiO2 02/03/18 07:00 93 Room Air 02/03/18 06:00 62 02/03/18 04:00 98.4 17 132/76 (94) 02/02/18 14:45 2 Intake and Output 02/03/18 02/03/18 02/04/18 08:00 16:00 00:00 Intake Total 850 ml Output Total 800 ml Balance 50 ml (Max Pinon) Physical Examination General: Patient resting in bed awake and alert in NAD. Eyes: Pupils equal sclera anicteric. Respiratory: Clear to auscultation bilaterally Heart: Normal sinus rhythm no murmurs. Abdomen: Soft positive bowel sounds Skin: No cyanosis or erythema. Right craniotomy incision is clean and dry without signs of infection or complication. Muscle: He moves all 4 extremities. His strength appears improved on left side than before, mild weakness. Neuro: Patient awakens to voice. He follows simple commands. He has mild expressive aphasia. Pupils are 3 mm bilaterally reactive bilaterally. (Max Pinon) Lab, Micro, Other Results Last Impressions Chest CT 01/31/18 0000 Signed Impressions: Service Date/Time: Wednesday, January 31, 2018 20:33 - CONCLUSION: 1. No primary or metastatic lesion is seen. 2. Compression deformity T12. Damian Wu MD Abdomen/Pelvis CT 01/31/18 0000 Signed Impressions: Service Date/Time: Wednesday, January 31, 2018 20:33 - CONCLUSION: 1. No evidence of metastatic disease or primary mass. 2. Nonobstructing renal stones seen bilaterally. 3. Degenerative change and compressive changes in the lower thoracic and lumbar spine. Underlying bone lesions are not seen. 4. Small hypodensities in the liver. Statistically, they likely represent cysts or hemangiomas. These are nonspecific on this noncontrast CT examination. Damian Wu MD Chest X-Ray 01/30/18 193 Signed Impressions: Service Date/Time: Tuesday, January 30, 2018 20:01 - CONCLUSION: No acute disease. Luis Kumar MD FACR Brain MRI 01/30/18 0000 Signed Impressions: Service Date/Time: Tuesday, January 30, 2018 21:32 - CONCLUSION: Large ring-enhancing mass right occipital region region measuring 5 cm x 5 cm.. Mass extends from ventricle to the dural surface with involvement of both. 1.2 cm right to left midline shift Glioblastoma is suspected. Luis Kumar MD FACR Laboratory Tests Test 02/02/18 14:20 White Blood Count 11.2 TH/MM3 Red Blood Count 4.42 MIL/MM3 Hemoglobin 13.6 GM/DL Hematocrit 40.4 % Mean Corpuscular Volume 91.5 FL Mean Corpuscular Hemoglobin 30.7 PG Mean Corpuscular Hemoglobin Concent 33.5 % Red Cell Distribution Width 13.8 % Platelet Count 297 TH/MM3 Mean Platelet Volume 7.3 FL Neutrophils (%) (Auto) 89.0 % Lymphocytes (%) (Auto) 7.2 % Monocytes (%) (Auto) 3.8 % Eosinophils (%) (Auto) 0.0 % Basophils (%) (Auto) 0.0 % Neutrophils # (Auto) 9.9 TH/MM3 Lymphocytes # (Auto) 0.8 TH/MM3 Monocytes # (Auto) 0.4 TH/MM3 Eosinophils # (Auto) 0.0 TH/MM3 Basophils # (Auto) 0.0 TH/MM3 CBC Comment DIFF FINAL Differential Comment Blood Urea Nitrogen 22 MG/DL Creatinine 1.10 MG/DL Random Glucose 159 MG/DL Calcium Level 7.9 MG/DL Magnesium Level 2.2 MG/DL Sodium Level 140 MEQ/L Potassium Level 4.1 MEQ/L Chloride Level 105 MEQ/L Carbon Dioxide Level 24.1 MEQ/L Anion Gap 11 MEQ/L Estimat Glomerular Filtration Rate 65 ML/MIN (Max Pinon) Medical Decision Making Impression and Plan A: Large right posterior temporoparietal occipital lobe mass extending from the cortex to the subcortical deep white matter structures down to the ventricle with finger-like projections and enhancement and necrotic areas along with associated edema. 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 Other possibilities in the differential diagnosis include metastases, as well as abscess and inflammatory process, which are less likely. S/p right craniotomy for mass resection. PLAN: Continue with neuro checks Continue with Decadron Continue with SCDs for DVT prophylaxis and Protonix for GI prophylaxis. Tylenol for pain per family and pts request. OOB with PT to chair. d/c An catheter. (Max Pinon) Attending Statement The exam, history, and the medical decision-making described in the above note were completed with the assistance of the mid-level provider. I reviewed and agree with the findings presented. I attest that I had a [id number] encounter with the patient on the same day, and personally performed and documented my assessment and findings in the medical record. Doing well postoperatively. Await final pathology results. Increase activity status as tolerated. Updated at bedside. (Anjum Gallegos MD) Max Pinon Feb 03, 2018 09:24 Anjum Gallegos MD Feb 03, 2018 13:48
[2018-02-03] MEDS: levETIRAcetam INJ 500 MG in SODIUM CHLORIDE 0.9% INJ 100 ML IV SCH ×2 (10:03→21:05)
[2018-02-03] MEDS: SODIUM CHLORIDE 0.9% FLUSH 10 ML FLUSH IV FLUSH SCH ×2 (10:03→21:00)
[2018-02-03] MEDS: PANTOPRAZOLE SOD 40 MG DELAYED RELEASE TAB PO SCH (10:04)
[2018-02-03] MEDS: DOCUSATE SODIUM 50 MG/SENNA 8.6 MG TAB PO SCH ×2 (10:04→21:05)
[2018-02-03] MEDS ORDERED: ACETAMINOPHEN 500 MG CPLT PO PRN (10:45)
--- NOTE | 2018-02-03 19:39 | PD.ONC.PN ---
Subjective Subjective Remarks "I walked outside in the [place] today." No headaches, trouble with finding words. Objective Data Date Time Temp Pulse Resp B/P (MAP) Pulse Ox O2 Delivery O2 Flow Rate FiO2 02/03/18 16:00 98.7 63 26 123/69 (87) 93 02/03/18 12:00 98.2 70 25 126/65 (85) 91 02/03/18 08:00 97.5 65 28 150/84 (106) 95 02/03/18 07:00 93 Room Air 02/03/18 06:00 62 02/03/18 04:00 50 02/03/18 04:00 98.4 50 17 132/76 (94) 94 02/03/18 02:00 52 02/03/18 00:00 54 02/03/18 00:00 98.6 54 19 131/71 (91) 95 02/02/18 22:00 56 02/02/18 20:00 98.2 72 26 141/76 (97) 94 02/02/18 20:00 72 02/03/18 02/03/18 02/03/18 06:59 14:59 22:59 Intake Total 850 ml 300 ml Output Total 800 ml 675 ml Balance 50 ml -375 ml Result Diagram: 02/02/18 1420 02/02/18 1420 Administered Medications Medications (Trade) Dose Ordered Sig/[place] Route PRN Reason Start Time Stop Time Status Last Admin Dose Admin Sodium Chloride (NS Flush) 2 ml BID IV FLUSH 01/31/18 09:00 02/03/18 10:03 Senna/Docusate Sodium (Viviane-Colace) 1 tab BID PO 01/31/18 09:00 02/03/18 10:04 Pantoprazole Sodium (Protonix) 40 mg DAILY PO 01/31/18 09:00 02/03/18 10:04 Dexamethasone Sodium Phosphate (Decadron Inj) 4 mg Q6HR IV PUSH 01/31/18 03:00 02/03/18 18:14 Insulin Aspart (NovoLOG SUPPLEMENTAL SCALE) 1 ACHS SLIDING SCALE SQ 01/31/18 08:00 02/03/18 18:14 Levetriacetam 500 mg/Sodium Chloride 105 ml @ 420 mls/hr Q12HR IV 01/31/18 09:00 02/03/18 10:03 Menthol ([place]) 1 lozenge UNSCH PRN BUCCAL SORE THROAT 01/31/18 10:15 02/02/18 19:38 Objective Remarks GENERAL: Well-nourished, well-developed patient. SKIN: Warm and dry. [place] along scar in posterior parietal R side. HEAD: Normocephalic. EYES: No scleral icterus. No injection or drainage. NECK: Supple, trachea midline. No JVD or lymphadenopathy. LYMPHATIC: No adenopathy. CARDIOVASCULAR: Regular rate and rhythm without murmurs. RESPIRATORY: Breath sounds equal bilaterally. No accessory muscle use. GASTROINTESTINAL: Abdomen soft, non-tender, nondistended. EXTREMITIES: No cyanosis, or edema. MUSCULOSKELETAL: Adequate muscle tone. NEUROLOGICAL: Weakness in L side. Awake, alert, and oriented x3. Mild aphasia. Assessment/Plan Problem List: (1) Brain mass ICD Codes: G93.9 - Disorder of brain, unspecified Status: Acute Plan: Frozen section glioma, final pathology pending. Discussed coordination of tx with rad onc for concurrent chemo / XRT. Assessment 77 y/o man with brain mass possible glioma. Plan 1. Consult rad onc. 2. Await final pathology. Maira Tovar MD Feb 03, 2018 19:39
[2018-02-04] VITALS (10 sets, daily range): BP systolic 102–179; BP diastolic 60–81; PULSE 50–76; RESP 18–26; TEMP 97.5–98.8; O2SAT 97–98
[2018-02-04] MEDS: CHLORHEXIDINE GLUCONATE 2 % 1 PACK (2 CLOTHS) TOP SCH ×2 (04:00→23:06)
[2018-02-04] MEDS: DEXAMETHASONE SOD PHOS 4 MG/ML VIAL IV PUSH SCH ×4 (06:00→23:08)
[2018-02-04] MEDS: INSULIN ASPART SUPPLEMENTAL SCALE SQ SCH ×4 (08:00→21:28)
[2018-02-04] MEDS: SODIUM CHLORIDE 0.9% FLUSH 10 ML FLUSH IV FLUSH SCH ×2 (08:21→21:30)
[2018-02-04] MEDS: levETIRAcetam INJ 500 MG in SODIUM CHLORIDE 0.9% INJ 100 ML IV SCH ×2 (08:21→21:31)
[2018-02-04] MEDS: PANTOPRAZOLE SOD 40 MG DELAYED RELEASE TAB PO SCH (08:22)
[2018-02-04] MEDS: DOCUSATE SODIUM 50 MG/SENNA 8.6 MG TAB PO SCH ×2 (08:22→21:30)
--- NOTE | 2018-02-04 09:53 | HHI.NSPN ---
History Chief Complaint: brain mass, confusion. Interval History This is a 77-year-old, right-handed, gentleman with about a 1-week history of confusion and left-sided weakness along with visual loss. Symptoms have progressed the last few days and he was seen by his primary care physician, who ordered a CT scan of the head which was done in the outpatient imaging center revealed a right-sided brain mass. He was informed to come to the emergency room last evening. He also relates intermittent headaches in the frontal aspect and sinus aspect and has had a cough. relates that generally he does not complain. He has a chronic lower back pain at times, sciatica involving both lower extremities. 02/01/18: Pt awakens to voice. Son at bedside states the patient was very confused this morning trying to get out of bed. He became very agitated and confused. He is currently calm and resting in bed although still some confusion. 02/03/18: Pt s/p right temporoparietal craniotomy for mass resection on 02/02/18. Pt mild confusion but pleasant. He follows commands well. Speech mild aphasia. Mild incisional soreness. Son at bedside thinks he will be okay without narcotic medication. 02/04/18: Pt awake and alert. Sitting up in chair. Mild aphasia. Pt appreciative of care being provided. Review of Systems General: Negative for: fever, chills, insomnia Respiratory: Negative for: shortness of breath, cough, sputum Cardiovascular: Negative for: chest pain Gastrointestinal: Negative for: nausea, vomitting, diarrhea, constipation Exam Results Vital Signs Date Time Temp Pulse Resp B/P (MAP) Pulse Ox O2 Delivery O2 Flow Rate FiO2 02/04/18 06:00 68 02/04/18 04:00 98.2 22 156/76 (102) 97 02/03/18 19:00 Room Air 02/02/18 14:45 2 Intake and Output 02/04/18 02/04/18 02/05/18 08:00 16:00 00:00 Intake Total 500 ml Balance 500 ml Physical Examination General: Patient sitting up in bed awake and alert in NAD. Eyes: Pupils equal sclera anicteric. Respiratory: Clear to auscultation bilaterally Heart: Normal sinus rhythm no murmurs. Abdomen: Soft positive bowel sounds Skin: No cyanosis or erythema. Right craniotomy incision is clean and dry without signs of infection or complication. Muscle: He moves all 4 extremities. His strength is improving on left side than before, mild weakness. Neuro: Patient awakens to voice. He follows simple commands. He has mild expressive aphasia. Pupils are 3 mm bilaterally reactive bilaterally. Lab, Micro, Other Results Last Impressions Chest CT 01/31/18 Signed Impressions: Service Date/Time: Wednesday, January 31, 2018 20:33 - CONCLUSION: 1. No primary or metastatic lesion is seen. 2. Compression deformity T12. Damian Wu MD Abdomen/Pelvis CT 01/31/18 Signed Impressions: Service Date/Time: Wednesday, January 31, 2018 20:33 - CONCLUSION: 1. No evidence of metastatic disease or primary mass. 2. Nonobstructing renal stones seen bilaterally. 3. Degenerative change and compressive changes in the lower thoracic and lumbar spine. Underlying bone lesions are not seen. 4. Small hypodensities in the liver. Statistically, they likely represent cysts or hemangiomas. These are nonspecific on this noncontrast CT examination. Damian Wu MD Chest X-Ray 01/30/181938 Signed Impressions: Service Date/Time: Tuesday, January 30, 2018 20:01 - CONCLUSION: No acute disease. Luis Kumar MD FACR Brain MRI 01/30/18 Signed Impressions: Service Date/Time: Tuesday, January 30, 2018 21:32 - CONCLUSION: Large ring-enhancing mass right occipital region region measuring 5 cm x 5 cm.. Mass extends from ventricle to the dural surface with involvement of both. 1.2 cm right to left midline shift Glioblastoma is suspected. Luis Kumar MD FACR Medical Decision Making Impression and Plan A: Large right posterior temporoparietal occipital lobe mass extending from the cortex to the subcortical deep white matter structures down to the ventricle with finger-like projections and enhancement and necrotic areas along with associated edema. 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 Other possibilities in the differential diagnosis include metastases, as well as abscess and inflammatory process, which are less likely. S/p right craniotomy for mass resection. PLAN: Continue with neuro checks Continue with Decadron Continue with SCDs for DVT prophylaxis and Protonix for GI prophylaxis. Tylenol for pain per family and pts request. Transfer to [facility] Feb 04, 2018 9:53 am
--- NOTE | 2018-02-04 13:58 | PD.ONC.PN ---
Subjective Subjective Remarks Afebrile overnight. Patient resting in room with . denies pain or headache. walking with assistance now. excited that he is going to a regular floor today. Objective Data Date Time Temp Pulse Resp B/P (MAP) Pulse Ox O2 Delivery O2 Flow Rate FiO2 02/04/18 12:00 62 02/04/18 10:00 69 02/04/18 07:00 96 Room Air 02/04/18 06:00 68 02/04/18 04:00 64 02/04/18 04:00 98.2 64 22 156/76 (102) 97 02/04/18 02:00 50 02/04/18 00:00 66 02/04/18 00:00 98.6 66 26 139/80 (99) 97 02/03/18 22:00 58 02/03/18 20:00 76 02/03/18 20:00 98.1 76 33 114/71 (85) 94 02/03/18 19:00 94 Room Air 02/03/18 16:00 98.7 63 26 123/69 (87) 93 02/04/18 02/04/18 02/04/18 07:00 15:00 23:00 Intake Total 500 ml Balance 500 ml Result Diagram: 02/02/18 1420 02/02/18 1420 Administered Medications Medications (Trade) Dose Ordered Sig/[place] Route PRN Reason Start Time Stop Time Status Last Admin Dose Admin Sodium Chloride (NS Flush) 2 ml BID IV FLUSH 01/31/18 09:00 02/04/18 08:21 Senna/Docusate Sodium (Viviane-Colace) 1 tab BID PO 01/31/18 09:00 02/04/18 08:22 Pantoprazole Sodium (Protonix) 40 mg DAILY PO 01/31/18 09:00 02/04/18 08:22 Dexamethasone Sodium Phosphate (Decadron Inj) 4 mg Q6HR IV PUSH 01/31/18 03:00 02/04/18 06:00 Insulin Aspart (NovoLOG SUPPLEMENTAL SCALE) 1 ACHS SLIDING SCALE SQ 01/31/18 08:00 02/03/18 21:00 Levetriacetam 500 mg/Sodium Chloride 105 ml @ 420 mls/hr Q12HR IV 01/31/18 09:00 02/04/18 08:21 Labetalol HCl (Trandate Inj) 10 mg Q1H PRN IV PUSH SYS BP GREATER THAN 170 MMHG 01/31/18 10:15 02/04/18 08:22 Menthol ([place]) 1 lozenge UNSCH PRN BUCCAL SORE THROAT 01/31/18 10:15 02/02/18 19:38 Objective Remarks GENERAL: Elderly male, sitting up in chair in nad. SKIN: Warm and dry. HEAD: Normocephalic. EYES: No injection or drainage. NECK: Supple, trachea midline. CARDIOVASCULAR: Regular rate and rhythm RESPIRATORY: Breath sounds equal bilaterally. No accessory muscle use. GASTROINTESTINAL: Abdomen soft, non-tender, nondistended. EXTREMITIES: No cyanosis, NEUROLOGICAL: awake and alert. normal speech. moving extremities. Assessment/Plan Problem List: (1) Brain mass ICD Codes: G93.9 - Disorder of brain, unspecified Status: Acute Plan: 02/04: final path remains pending. discussed with patient that we will arrange follow up in clinic after rehab. Frozen section glioma, final pathology pending. Discussed coordination of tx with rad onc for concurrent chemo / XRT. Assessment 77 y/o man with brain mass possible glioma. Plan 1. face sheet faxed to new patient referrals for follow up the week after next ( after discharge from rehab.) 2. oncology clear for discharge 3. continue supportive care Mary Villalpando Feb 04, 2018 13:58
[2018-02-05] VITALS (8 sets, daily range): BP systolic 120–173; BP diastolic 73–89; PULSE 54–93; RESP 16–20; TEMP 97.2–98.7; O2SAT 96–97
[2018-02-05] MEDS: DEXAMETHASONE SOD PHOS 4 MG/ML VIAL IV PUSH SCH ×4 (04:36→22:30)
[2018-02-05] MEDS: INSULIN ASPART SUPPLEMENTAL SCALE SQ SCH ×4 (08:00→22:30)
[2018-02-05] MEDS: DOCUSATE SODIUM 50 MG/SENNA 8.6 MG TAB PO SCH ×2 (09:00→22:29)
--- NOTE | 2018-02-05 09:19 | HHI.NSPN ---
(Max Pinon) History Chief Complaint: brain mass, confusion. (Max Pinon) Interval History This is a 77-year-old, right-handed, gentleman with about a 1-week history of confusion and left-sided weakness along with visual loss. Symptoms have progressed the last few days and he was seen by his primary care physician, who ordered a CT scan of the head which was done in the outpatient imaging center revealed a right-sided brain mass. He was informed to come to the emergency room last evening. He also relates intermittent headaches in the frontal aspect and sinus aspect and has had a cough. relates that generally he does not complain. He has a chronic lower back pain at times, sciatica involving both lower extremities. 02/01/18: Pt awakens to voice. Son at bedside states the patient was very confused this morning trying to get out of bed. He became very agitated and confused. He is currently calm and resting in bed although still some confusion. 02/03/18: Pt s/p right temporoparietal craniotomy for mass resection on 02/02/18. Pt mild confusion but pleasant. He follows commands well. Speech mild aphasia. Mild incisional soreness. Son at bedside thinks he will be okay without narcotic medication. 02/04/18: Pt awake and alert. Sitting up in chair. Mild aphasia. Pt appreciative of care being provided. 02/05/18: Pt awake and alert. Sitting up in bed. Mild to moderate expressive aphasia. Mild incisional discomfort. Follows commands well. (Max Pinon) Review of Systems General: Negative for: fever, chills, insomnia Respiratory: Negative for: shortness of breath, cough, sputum Cardiovascular: Negative for: chest pain Gastrointestinal: Negative for: nausea, vomitting, diarrhea, constipation ( Max Pinon) Exam Results Vital Signs Date Time Temp Pulse Resp B/P (MAP) Pulse Ox O2 Delivery O2 Flow Rate FiO2 02/05/18 08:00 97.2 59 18 173/89 (117) 97 02/04/18 20:00 Room Air 02/02/18 14:45 2 Intake and Output 02/05/18 02/05/18 02/06/18 08:00 16:00 00:00 Intake Total 480 ml Output Total 600 ml Balance -120 ml (Max Pinon) Physical Examination General: Patient sitting up in bed awake and alert in NAD. Eyes: Pupils equal sclera anicteric. Respiratory: Clear to auscultation bilaterally Heart: Normal sinus rhythm no murmurs. Abdomen: Soft positive bowel sounds Skin: No cyanosis or erythema. Right craniotomy incision is clean and dry without signs of infection or complication. Muscle: He moves all 4 extremities. His strength is improving on left side appears symmetric now. Neuro: Patient awakens to voice. He follows simple commands. He has mild to moderate expressive aphasia. Pupils are 3 mm bilaterally reactive bilaterally. (Max Pinon) Lab, Micro, Other Results Last Impressions Chest CT 01/31/18 0000 Signed Impressions: Service Date/Time: Wednesday, January 31, 2018 20:33 - CONCLUSION: 1. No primary or metastatic lesion is seen. 2. Compression deformity T12. Damian Wu MD Abdomen/Pelvis CT 01/31/18 0000 Signed Impressions: Service Date/Time: Wednesday, January 31, 2018 20:33 - CONCLUSION: 1. No evidence of metastatic disease or primary mass. 2. Nonobstructing renal stones seen bilaterally. 3. Degenerative change and compressive changes in the lower thoracic and lumbar spine. Underlying bone lesions are not seen. 4. Small hypodensities in the liver. Statistically, they likely represent cysts or hemangiomas. These are nonspecific on this noncontrast CT examination. Damian Wu MD Chest X-Ray 01/30/18 193 Signed Impressions: Service Date/Time: Tuesday, January 30, 2018 20:01 - CONCLUSION: No acute disease. Luis Kumar MD FACR Brain MRI 01/30/18 0000 Signed Impressions: Service Date/Time: Tuesday, January 30, 2018 21:32 - CONCLUSION: Large ring-enhancing mass right occipital region region measuring 5 cm x 5 cm.. Mass extends from ventricle to the dural surface with involvement of both. 1.2 cm right to left midline shift Glioblastoma is suspected. Luis Kumar MD FACR (Max Pinon) Medical Decision Making Impression and Plan A: Large right posterior temporoparietal occipital lobe mass extending from the cortex to the subcortical deep white matter structures down to the ventricle with finger-like projections and enhancement and necrotic areas along with associated edema. 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 Other possibilities in the differential diagnosis include metastases, as well as abscess and inflammatory process, which are less likely. S/p right craniotomy for mass resection. Final pathology reveals GBM. PLAN: Continue with neuro checks Continue with Decadron Continue with SCDs for DVT prophylaxis and Protonix for GI prophylaxis. Tylenol for pain per family and pts request. (Max Pinon) Attending Statement The exam, history, and the medical decision-making described in the above note were completed with the assistance of the mid-level provider. I reviewed and agree with the findings presented. I attest that I had a [id number] encounter with the patient on the same day, and personally performed and documented my assessment and findings in the medical record. Stable neurologic examination. Ambulated in the hallways with physical therapy. He can be transferred to group home home facility tomorrow from neurosurgical standpoint. Discussed with . (Anjum Gallegos MD) Max Pinon Feb 05, 2018 09:19 Anjum Gallegos MD Feb 05, 2018 19:05
--- NOTE | 2018-02-05 13:34 | PD.ONC.PN ---
Subjective Subjective Remarks Afebrile overnight. patient resting in chair next to bed in nad. wants to get up and walk around more. concerned about finding an appropriate rehab. Objective Data Date Time Temp Pulse Resp B/P (MAP) Pulse Ox O2 Delivery O2 Flow Rate FiO2 02/05/18 12:00 98.4 93 18 128/77 (94) 96 02/05/18 08:00 97.2 59 18 173/89 (117) 97 02/05/18 08:00 Room Air 02/05/18 04:00 97.8 64 20 162/85 (110) 96 02/05/18 00:00 97.8 56 18 162/88 (112) 96 02/04/18 20:00 Room Air 02/04/18 20:00 72 02/04/18 20:00 98.2 69 18 125/75 (92) 97 02/04/18 16:00 97.5 76 20 130/78 (95) 98 02/04/18 16:00 62 02/04/18 14:00 69 02/05/18 02/05/18 02/05/18 07:00 15:00 23:00 Intake Total 480 ml Output Total 600 ml Balance -120 ml Result Diagram: 02/02/18 1420 02/02/18 1420 Administered Medications Medications (Trade) Dose Ordered Sig/[place] Route PRN Reason Start Time Stop Time Status Last Admin Dose Admin Sodium Chloride (NS Flush) 2 ml BID IV FLUSH 01/31/18 09:00 02/04/18 21:30 Senna/Docusate Sodium (Viviane-Colace) 1 tab BID PO 01/31/18 09:00 02/04/18 21:30 Pantoprazole Sodium (Protonix) 40 mg DAILY PO 01/31/18 09:00 02/04/18 08:22 Dexamethasone Sodium Phosphate (Decadron Inj) 4 mg Q6HR IV PUSH 01/31/18 03:00 02/05/18 04:36 Insulin Aspart (NovoLOG SUPPLEMENTAL SCALE) 1 ACHS SLIDING SCALE SQ 01/31/18 08:00 02/04/18 21:28 Levetriacetam 500 mg/Sodium Chloride 105 ml @ 420 mls/hr Q12HR IV 01/31/18 09:00 02/04/18 21:31 Labetalol HCl (Trandate Inj) 10 mg Q1H PRN IV PUSH SYS BP GREATER THAN 170 MMHG 01/31/18 10:15 02/04/18 08:22 Menthol (Seffner [place]) 1 lozenge UNSCH PRN BUCCAL SORE THROAT 01/31/18 10:15 02/02/18 19:38 Objective Remarks GENERAL: Elderly male, sitting up in chair next to bed SKIN: Warm and dry. HEAD: Normocephalic. EYES: No injection or drainage. NECK: Supple, trachea midline. CARDIOVASCULAR: Regular rate and rhythm RESPIRATORY: Breath sounds equal bilaterally. No accessory muscle use. GASTROINTESTINAL: Abdomen soft, non-tender, nondistended. EXTREMITIES: No cyanosis NEUROLOGICAL: awake and alert. normal speech, moving extremities. Assessment/Plan Problem List: (1) Glioblastoma multiforme ICD Codes: C71.9 - Malignant neoplasm of brain, unspecified Assessment 77 y/o man with newly diagnosed Glioblastoma multiforme. Plan 1. discussed pathology with patient and . discussed in general terms the plan for treatment with Temodar and Radiation. Emotional support provided. patient and very grateful for information. 2. oncology clear for discharge 3. follow up in clinic after discharge from rehab. Attending Statement The exam, history, and the medical decision-making described in the above note were completed with the assistance of the mid-level provider. I reviewed and agree with the findings presented. I attest that I had a [id number] encounter with the patient on the same day, and personally performed and documented my assessment and findings in the medical record. Lengthy discussion with patient and . Answered their questions. Plan to DC to rehab tomorrow. Ok for DC from heme/onc standpoint. Discussed standard of care is to tx with concurrent chemo/XRT using Temodar. New pt referral has already contacted pt/ for fu appt. Discussed second opinion, Dr. Gallegos referring to [place]. Discussed second opinion with Neuro Oncologist Dr. Hugo Cooper which we will follow up as out pt. Mary Villalpando Feb 05, 2018 13:34 Maira Tovar MD Feb 05, 2018 19:13
[2018-02-05] MEDS: SODIUM CHLORIDE 0.9% FLUSH 10 ML FLUSH IV FLUSH SCH ×2 (14:23→22:28)
[2018-02-05] MEDS: levETIRAcetam INJ 500 MG in SODIUM CHLORIDE 0.9% INJ 100 ML IV SCH ×2 (14:24→22:28)
[2018-02-05] MEDS: PANTOPRAZOLE SOD 40 MG DELAYED RELEASE TAB PO SCH (14:24)
[2018-02-06 04:00] VITALS: BP 145/85; PULSE 56; RESP 17; TEMP 96.8; O2SAT 95
[2018-02-06] MEDS: CHLORHEXIDINE GLUCONATE 2 % 1 PACK (2 CLOTHS) TOP SCH (04:00)
[2018-02-06] MEDS: DEXAMETHASONE SOD PHOS 4 MG/ML VIAL IV PUSH SCH ×2 (05:43→14:57)
[2018-02-06 08:00] VITALS: BP 153/89; PULSE 56; RESP 18; TEMP 97.4; O2SAT 95
[2018-02-06] MEDS: INSULIN ASPART SUPPLEMENTAL SCALE SQ SCH ×2 (08:00→12:00)
[2018-02-06] MEDS ORDERED: PROT40TA PO (09:05)
[2018-02-06] MEDS ORDERED: DEXA4TAB PO (09:05)
[2018-02-06] MEDS ORDERED: NORC5TAB PO (09:05)
[2018-02-06] MEDS: PANTOPRAZOLE SOD 40 MG DELAYED RELEASE TAB PO SCH (09:12)
[2018-02-06] MEDS: DOCUSATE SODIUM 50 MG/SENNA 8.6 MG TAB PO SCH (09:12)
[2018-02-06] MEDS: SODIUM CHLORIDE 0.9% FLUSH 10 ML FLUSH IV FLUSH SCH (09:12)
[2018-02-06] MEDS: levETIRAcetam INJ 500 MG in SODIUM CHLORIDE 0.9% INJ 100 ML IV SCH (09:13)
--- NOTE | 2018-02-06 09:13 | HHI.NSPN ---
History Chief Complaint: brain mass, confusion. Interval History This is a 77-year-old, right-handed, gentleman with about a 1-week history of confusion and left-sided weakness along with visual loss. Symptoms have progressed the last few days and he was seen by his primary care physician, who ordered a CT scan of the head which was done in the outpatient imaging center revealed a right-sided brain mass. He was informed to come to the emergency room last evening. He also relates intermittent headaches in the frontal aspect and sinus aspect and has had a cough. relates that generally he does not complain. He has a chronic lower back pain at times, sciatica involving both lower extremities. 02/01/18: Pt awakens to voice. Son at bedside states the patient was very confused this morning trying to get out of bed. He became very agitated and confused. He is currently calm and resting in bed although still some confusion. 02/03/18: Pt s/p right temporoparietal craniotomy for mass resection on 02/02/18. Pt mild confusion but pleasant. He follows commands well. Speech mild aphasia. Mild incisional soreness. Son at bedside thinks he will be okay without narcotic medication. 02/04/18: Pt awake and alert. Sitting up in chair. Mild aphasia. Pt appreciative of care being provided. 02/05/18: Pt awake and alert. Sitting up in bed. Mild to moderate expressive aphasia. Mild incisional discomfort. Follows commands well. 02/06/18: Pt awake and alert. Denies headaches. Moderate expressive aphasia. Follows commands well. Review of Systems General: Negative for: fever, chills, insomnia Respiratory: Negative for: shortness of breath, cough, sputum Cardiovascular: Negative for: chest pain Gastrointestinal: Negative for: nausea, vomitting, diarrhea, constipation Exam Results Vital Signs Date Time Temp Pulse Resp B/P (MAP) Pulse Ox O2 Delivery O2 Flow Rate FiO2 02/06/18 08:00 97.4 56 18 153/89 (110) 95 02/05/18 21:45 Room Air 02/02/18 14:45 2 Intake and Output 02/06/18 02/06/18 02/07/18 08:00 16:00 00:00 Intake Total 420 ml Balance 420 ml Physical Examination General: Patient sitting up in bed awake and alert in NAD. Eyes: Pupils equal sclera anicteric. Respiratory: Clear to auscultation bilaterally Heart: Normal sinus rhythm no murmurs. Abdomen: Soft positive bowel sounds Skin: No cyanosis or erythema. Right craniotomy incision is clean and dry without signs of infection or complication. Muscle: He moves all 4 extremities. His strength is improving on left side appears symmetric now. Neuro: Patient awakens to voice. He follows simple commands. He has moderate expressive aphasia. Pupils are 3 mm bilaterally reactive bilaterally. Lab, Micro, Other Results Last Impressions Chest CT 01/31/18 Signed Impressions: Service Date/Time: Wednesday, January 31, 2018 20:33 - CONCLUSION: 1. No primary or metastatic lesion is seen. 2. Compression deformity T12. Damian Wu MD Abdomen/Pelvis CT 01/31/18 Signed Impressions: Service Date/Time: Wednesday, January 31, 2018 20:33 - CONCLUSION: 1. No evidence of metastatic disease or primary mass. 2. Nonobstructing renal stones seen bilaterally. 3. Degenerative change and compressive changes in the lower thoracic and lumbar spine. Underlying bone lesions are not seen. 4. Small hypodensities in the liver. Statistically, they likely represent cysts or hemangiomas. These are nonspecific on this noncontrast CT examination. Damian Wu MD Chest X-Ray 01/30/181938 Signed Impressions: Service Date/Time: Tuesday, January 30, 2018 20:01 - CONCLUSION: No acute disease. Luis Kumar MD FACR Brain MRI 01/30/18 Signed Impressions: Service Date/Time: Tuesday, January 30, 2018 21:32 - CONCLUSION: Large ring-enhancing mass right occipital region region measuring 5 cm x 5 cm.. Mass extends from ventricle to the dural surface with involvement of both. 1.2 cm right to left midline shift Glioblastoma is suspected. Luis Kumar MD FACR Medical Decision Making Impression and Plan A: Large right posterior temporoparietal occipital lobe mass extending from the cortex to the subcortical deep white matter structures down to the ventricle with finger-like projections and enhancement and necrotic areas along with associated edema. 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 Other possibilities in the differential diagnosis include metastases, as well as abscess and inflammatory process, which are less likely. S/p right craniotomy for mass resection. Final pathology reveals GBM. PLAN: Continue with neuro checks Continue with Decadron Continue with SCDs for DVT prophylaxis and Protonix for GI prophylaxis. Tylenol for pain per family and pts request. Transfer to rehab when bed available. Remove michael 02/09. Max Pinon Feb 06, 2018 9:13 am
[2018-02-06 12:30] VITALS: BP 108/55; PULSE 92; RESP 18; TEMP 97; O2SAT 95
== END 2018-02-06 17:45 | DRG 25 ==
LOC: NEPE 17:46 → NEDA 21:29 → NEDH 01-31 03:17 → N03B 01-31 08:16
PROVIDERS: ADMIT Neurological Surgery; ATTEND Neurological Surgery
PROC: 00B70ZZ Excision of Cerebral Hemisphere, Open Approach (ICD-10-PCS; principal; 2018-02-02 11:19)
DX: C71.8 Malignant neoplasm of overlapping sites of brain (principal); G93.6 Cerebral edema; R47.01 Aphasia; Z96.651 Presence of right artificial knee joint; M19.90 Unspecified osteoarthritis, unspecified site; M54.41 Lumbago with sciatica, right side; M54.42 Lumbago with sciatica, left side; G89.29 Other chronic pain; R05 Cough; M54.10 Radiculopathy, site unspecified; H54.7 Unspecified visual loss; R53.1 Weakness
CPT/HCPCS: 70553; 71045; 71250; 74176; 80048; 80053; 82948; 83690; 83735; 84100; 84443; 85025; 85610; 85730; 86850; 86900; 86901; 88305; 88307; 88331; 93005; 93306; 94150; 96374; A9579; C1713; J0131; J1100; J1580; J1815; J1953; J2370; J2405; J2710; J3010; J3370; J3480; Q9963

== ENCOUNTER 2018-03-31 18:24 | Inpatient (IN) | payer MEDICARE, OTHER ==
[~2018-03-31 18:24] MED LIST changes: +CALCTAB80 PO; -CHOL1CAP6 PO; -CITRTAB8 PO; +DEXA4TAB PO; -FOSA70TA PO; -HYDR-3129 PO; +MELO15TA20 PO; +NORC5TAB PO; +PROT40TA PO
[2018-03-31 18:40] VITALS: BP 101/75; PULSE 91; RESP 20; TEMP 98.9; O2SAT 94
[2018-03-31 18:55] VITALS: BP 136/88; PULSE 44; PULSE 93; RESP 17; TEMP 98.5; O2SAT 96
--- NOTE | 2018-03-31 19:23 | PD ---
HPI Chief Complaint: Altered Mental Status Time Seen by Provider: 19:13 Travel History International Travel<30 days: No Contact w/Intl Traveler<30days: No Traveled to known affect area: No History of Present Illness HPI The patient is a 77 year old male who presents to the [facility] emergency department with a history of increased confusion over the last 3 days. According to the patient's , the patient has a recent medical history of at the beginning of January losing his peripheral vision of the left eye. He underwent a CT scan on January 25 that revealed evidence of a glioblastoma. The patient underwent surgical resection with Dr. Dc on February 02. The patient was discharged from the hospital on February [address] [facility] for rehab. The patient was in rehab for approximately a week and then followed up with Dr. Gray for radiation therapy and for his oncologic care. The patient underwent 3 weeks of radiation therapy and chemotherapy. Last week on his dexamethasone was decreased down to 0.5 mg daily. His reports that over the last 1-2 weeks he has had urinary frequency and urgency. He has not had a urinalysis regarding this, however she has been in the process of getting a referral to the urologist that he saw previously for kidney stones. She reports that over the last 3 days he has been talking in a confused way. She reports that she found him in the garage yesterday opening and closing the door. She reports that he has an unsteady gait. She has not noticed him having any one-sided weakness. He denies having any numbness or tingling to his extremities. He denies having any new visual deficits. He denies having any new back pain. They deny him having any known recent fevers. He does have an occasional cough, however no increased productivity to his cough or chest congestion. He denies having any neck pain, chest pain, shortness of breath, abdominal pain, vomiting, diarrhea, or other neurologic symptoms. [facility] Past Medical History Narrative Medical The patient's past medical history is significant for being recently diagnosed with a glioblastoma, history of chronic low back pain, arthritis, history of kidney stones, history of hypertension. Arthritis: Yes Anxiety: No Depression: No Heart Rhythm Problems: Yes Cancer: No Cardiovascular Problems: Yes Diabetes: No Endocrine: No Genitourinary: No Hepatitis: No Hiatal Hernia: No Hypertension: Yes Immune Disorder: No Musculoskeletal: Yes (arthritis, SCOLIOSIS) Neurologic: Yes (pain down l leg with numbness back of leg to foot) Psychiatric: No Reproductive: No Respiratory: No Thyroid Disease: No Tetanus Vaccination: Unknown Influenza Vaccination: Yes Past Surgical History Narrative Surgical The patient's past surgical history is significant for right knee surgery, glioblastoma resection by Dr. Gallegos. AICD: No Joint Replacement: Yes (r knee) Pacemaker: No Other Surgery: Yes Social History Alcohol Use: No Tobacco Use: No Substance Use: No Allergies-Medications (Allergen,Severity, Reaction): Coded Allergies: No Known Allergies (Unverified Allergy, Unknown, 01/30/18) Reported Meds & Prescriptions Reported Meds & Active Scripts Active Protonix (Pantoprazole Sodium) 40 Mg Tab 40 Mg PO DAILY Dexamethasone 4 Mg Tab 4 Mg PO BID [place] (Hydrocodone-Acetaminophen) 5 Mg-325 Mg Tab 1 Tab PO Q6H PRN Reported Meloxicam 15 Mg Tab 15 Mg PO DAILY Calcium 1000 + D (Calcium Carbonate-Cholecalciferol) 1,000-800 Mg-Unit Tab 1 Tab PO DAILY Review of Systems Except as stated in HPI: all other systems reviewed are Neg General / Constitutional: No: Fever Eyes: No: Visual changes HENT: No: Headaches, Rhinorrhea, Congestion, Neck Stiffness, Neck Pain Cardiovascular: No: Chest Pain or Discomfort Respiratory: Positive: Cough, No: Shortness of Breath Gastrointestinal: No: Abdominal Pain Genitourinary: Positive: Urgency, Frequency, No: Dysuria, Flank Pain Musculoskeletal: Positive: Myalgias, Pain Skin: No Rash Neurologic: Positive: Change in Mentation, No: Weakness, Focal Abnormalities, Slurred Speech, Sensory Disturbance Psychiatric: No: Depression Endocrine: No: Polydipsia Hematologic/Lymphatic: No: Easy Bruising Physical Exam Narrative General: The patient is a well-developed well-nourished male in no acute distress. Head and Neck exam: Head is normocephalic atraumatic. Eyes: EOMI, pupils are equal round and reactive to light. Nose: Midline septum with pink mucous membranes Mouth: Dentition unremarkable. Moist mucus membranes. Posterior oropharynx is not erythematous. No tonsillar hypertrophy. Uvula midline. Airway patent. Neck: No palpable lymphadenopathy. No nuchal rigidity. No thyromegaly. Cardiovascular: Regular rate and rhythm without murmurs, gallops, or rubs. No pulse deficit to the extremities on simultaneous auscultation and palpation of his radial artery. Lungs: Clear to auscultation bilaterally. No wheezes, rhonchi, or rales. Abdomen: Soft, without tenderness to palpation in all 4 quadrants of the abdomen. No guarding, rebound, or rigidity. Normal bowel sounds are audible. No tenderness on palpation of McBurney's point. Negative Henry sign. Extremities: No clubbing, cyanosis, or edema. 2+ pulses in all 4 extremities. No calf tenderness on palpation. Back: No spinous process tenderness to palpation. No costovertebral angle tenderness to palpation. Neurologic Exam: Cranial nerves 2-12 were intact on exam. Strength is 5/5 in all 4 extremities. No sensory deficits noted. Skin Exam: No rash noted. Intact skin that is warm and dry. Data Data Last Documented VS Vital Signs Date Time Temp Pulse Resp B/P (MAP) Pulse Ox O2 Delivery O2 Flow Rate FiO2 03/31/18 20:41 58 18 111/74 (86) 96 Nasal Cannula 2.00 03/31/18 18:55 98.5 Orders Orders Electrocardiogram (03/31/18 ) Electrocardiogram (03/31/18 19:15) Complete Blood Count With Diff (03/31/18 19:15) Comprehensive Metabolic Panel (03/31/18 19:15) Creatine Kinase (Cpk) (03/31/18 19:15) Ckmb (Isoenzyme) Profile (03/31/18 19:15) Troponin I (03/31/18 19:15) B-Type Natriuretic Peptide (03/31/18 19:15) Prothrombin Time / Inr (Pt) (03/31/18 19:15) Act Partial Throm Time (Ptt) (03/31/18 19:15) C-Reactive Protein (Crp) (03/31/18 19:15) Lipase (03/31/18 19:15) Urinalysis - C+S If Indicated (03/31/18 19:15) Magnesium (Mg) (03/31/18 19:15) Ammonia (03/31/18 19:15) Chest, Single Ap (03/31/18 19:15) Ct Brain W/O Iv Contrast(Rout) (03/31/18 19:15) Iv Access Insert/Monitor (03/31/18 19:15) Ecg Monitoring (03/31/18 19:15) Oximetry (03/31/18 19:15) Dexamethasone Inj (Decadron Inj) (03/31/18 21:15) Admit Order (Ed Use Only) (03/31/18 21:59) Place In Observation (03/31/18 21:57) Vital Signs (Adult) Q4H (03/31/18 21:57) Elevate Head Of Bed (03/31/18 21:57) Intake + Output LIN.Q8H (03/31/18 21:57) Diet Regular Basic (04/01/18 Breakfast) Complete Blood Count With Diff (04/01/18 06:00) Basic Metabolic Panel (Bmp) (04/01/18 06:00) Resp Incentive Spirometry (03/31/18 21:57) Consult Pt Eval & Treat (03/31/18 21:57) Activity Oob With Assistance PRN (03/31/18 21:57) Mri Brain W&W/O Contrast (03/31/18 21:57) Scd Bilateral/Knee High LIN.QSHIFT (03/31/18 21:57) Neuro Checks RT.Q4H (03/31/18 21:57) Dexamethasone Inj (Decadron Inj) (03/31/18 22:00) Acetamin-Hydrocod 325-5 Mg ([place] 5-325 (03/31/18 22:00) Pantoprazole (Protonix) (04/01/18 09:00) (Nf) Calcium Carbonate-Cholecalciferol ( (04/01/18 09:00) Labs Laboratory Tests Test 03/31/18 19:25 White Blood Count 6.6 TH/MM3 Red Blood Count 4.39 MIL/MM3 Hemoglobin 13.5 GM/DL Hematocrit 39.6 % Mean Corpuscular Volume 90.3 FL Mean Corpuscular Hemoglobin 30.7 PG Mean Corpuscular Hemoglobin Concent 34.0 % Red Cell Distribution Width 14.5 % Platelet Count 317 TH/MM3 Mean Platelet Volume 6.6 FL Neutrophils (%) (Auto) 64.0 % Lymphocytes (%) (Auto) 19.7 % Monocytes (%) (Auto) 13.6 % Eosinophils (%) (Auto) 1.5 % Basophils (%) (Auto) 1.2 % Neutrophils # (Auto) 4.2 TH/MM3 Lymphocytes # (Auto) 1.3 TH/MM3 Monocytes # (Auto) 0.9 TH/MM3 Eosinophils # (Auto) 0.1 TH/MM3 Basophils # (Auto) 0.1 TH/MM3 CBC Comment DIFF FINAL Differential Comment Prothrombin Time 10.1 SEC Prothromb Time International Ratio 1.0 RATIO Activated Partial Thromboplast Time 20.5 SEC Urine Color YELLOW Urine Turbidity CLOUDY Urine pH 5.5 Urine Specific [place] 1.022 Urine Protein NEG mg/dL Urine Glucose (UA) NEG mg/dL Urine Ketones NEG mg/dL Urine Occult Blood NEG Urine Nitrite NEG Urine Bilirubin NEG Urine Urobilinogen LESS THAN 2.0 MG/DL Urine Leukocyte Esterase NEG Urine RBC LESS THAN 1 /hpf Urine WBC 1 /hpf Urine Uric Acid Crystals FEW /hpf Urine Mucus MOD /lpf Microscopic Urinalysis Comment CULT NOT INDICATED Blood Urea Nitrogen 15 MG/DL Creatinine 1.31 MG/DL Random Glucose 115 MG/DL Total Protein 6.5 GM/DL Albumin 3.2 GM/DL Calcium Level 9.1 MG/DL Magnesium Level 2.6 MG/DL Alkaline Phosphatase 98 U/L Aspartate Amino Transf (AST/SGOT) 20 U/L Alanine Aminotransferase (ALT/SGPT) 31 U/L Total Bilirubin 0.4 MG/DL Sodium Level 134 MEQ/L Potassium Level 4.3 MEQ/L Chloride Level 101 MEQ/L Carbon Dioxide Level 21.3 MEQ/L Anion Gap 12 MEQ/L Estimat Glomerular Filtration Rate 53 ML/MIN Ammonia 18 MCMOL/L Total Creatine Kinase 52 U/L Troponin I LESS THAN 0.02 NG/ML C-Reactive Protein LESS THAN 0.29 MG/DL Lipase 222 U/L [facility] Medical Decision Making Medical Screen Exam Complete: Yes Emergency Medical Condition: Yes Medical Record Reviewed: Yes Differential Diagnosis Intracranial hemorrhage, versus intracranial edema from glioblastoma, versus urinary tract infection, versus pneumonia, versus encephalopathy Narrative Course During the course of the patient's emergency department visit, the patient's history, examination, and differential diagnosis were reviewed with the patient. The patient was placed on a alarm security or surveillance monitor with oximetry and frequent blood pressure monitoring. The patient had IV access obtained and blood work sent for analysis. The patient had a EKG done on arrival. The patient's EKG reveals a sinus rhythm heart rate of 91, occasional supraventricular premature complexes, QRS duration 132 ms, QTC 407 ms with a right bundle branch block noted. No acute ST segment elevation The patient's laboratory studies were reviewed and remarkable for a white count of 6.6, hemoglobin 13.5, platelets 317, monocytes 13.6. Chemistry is remarkable for a sodium of 134, creatinine 1.31, glucose 115, magnesium 2.6, cardiac enzymes within normal limits, C-reactive protein is less than 0.29, lipase 222, ammonia level is 18 ruling out hepatic encephalopathy as a cause of the patient's altered mentation, PT 10.1, PTT 20.5. Urinalysis shows cloudy urine, few uric acid crystals, moderate mucus, culture not indicated. Radiology studies were reviewed and remarkable for a chest x-ray that shows no acute cardiopulmonary disease. CT scan of the brain shows a large area of hypodensity in the right temporal occipital and frontoparietal regions with mass -effect and encasement of the posterior horn of the right lateral ventricle. There is mild ventriculomegaly of the left lateral ventricle and temporal horn again seen. There are no signs of intracranial hemorrhage. Right parietal craniotomy is noted. There is midline shift from the right to the left measuring 6.7 mm. A call will be placed out to the patient's neurosurgeon regarding these findings. The patient will be started back on a higher dose of Decadron. I suspect that the patient's increasingly unsteady gait and increased confusion is related to a recurrence of swelling related to his glioblastoma. The patient's results were discussed with the patient, including the plan of care. I explained that further testing and/ or monitoring is indicated based on the patient's history, examination, and/ or laboratory findings. Therefore, I recommended admission for additional evaluation. The patient expressed understanding and was agreeable with this plan. The patient was admitted to the hospital in guarded condition and sent to a bed under the care of Dr. Koenig, (He reports that Dr. Gallegos is out of town). Physician Communication Physician Communication The patient's case including history, pertinent physical examination findings, and laboratory studies were discussed with Dr. Koenig, covering for Dr. Gallegos, he arrived at the patient's bedside and examined the patient at approximately 9: 15 PM. It was agreed that the patient would be admitted to Dr. Koenig's service. Diagnosis Primary Impression: Altered mental status Qualified Codes: R41.0 - Disorientation, unspecified Admitting Information Admitting Physician Requests: Admit Stefania Torres MD Mar 31, 2018 19:23
[2018-03-31 19:48] LABS: AUTOMATED NEUTROPHIL # 4.2 TH/MM3 (1.8-7.7); BASOPHIL # 0.1 TH/MM3 (0-0.2); BASOPHIL % 1.2 % (0.0-2.0); EOSINOPHIL # 0.1 TH/MM3 (0-0.4); EOSINOPHIL % 1.5 % (0.0-4.0); HEMATOCRIT 39.6 % (39.0-51.0); HEMOGLOBIN 13.5 GM/DL (13.0-17.0); LYMPH % 19.7 % (9.0-44.0); LYMPHOCYTE # 1.3 TH/MM3 (1.0-4.8); MEAN CELL VOLUME 90.3 FL (80.0-100.0); MEAN CORPUSCULAR HEMOGLOBIN 30.7 PG (27.0-34.0); MEAN PLATELET VOLUME 6.6 FL (7.0-11.0); MONO % 13.6 % (0.0-8.0); MONOCYTE # 0.9 TH/MM3 (0-0.9); PLATELET COUNT 317 TH/MM3 (150-450); RED BLOOD COUNT 4.39 MIL/MM3 (4.50-5.90); RED CELL DISTRIBUTION WIDTH 14.5 % (11.6-17.2); WHITE BLOOD COUNT 6.6 TH/MM3 (4.0-11.0)
--- NOTE | 2018-03-31 19:51 | RADRPT ---
EXAM DATE: 03/31/2018 7:32 PM EDT AGE/SEX: 77 years / Male INDICATIONS: Cough. Congestion. CLINICAL DATA: This is the patient's initial encounter. Patient reports that signs and symptoms have been present for 3 days and indicates a pain score of 5/10. MEDICAL/SURGICAL HISTORY: None. None. [place] [facility] [place]. . FINDINGS: A single AP view of the chest demonstrates the lungs to be symmetrically aerated without evidence of mass, infiltrate or effusion. The cardiomediastinal contours are unremarkable. Osseous structures a re intact. CONCLUSION: Negative examination. Electronically signed by: Mathew Reis MD 03/31/2018 7:49 PM EDT
--- NOTE | 2018-03-31 20:09 | RADRPT ---
EXAM DATE: 03/31/2018 7:53 PM EDT AGE/SEX: 77 years / Male INDICATIONS: Altered mental status. CLINICAL DATA: This is the patient's initial encounter. Patient reports that signs and symptoms have been present for 1 day and indicates a pain score of 0/10. MEDICAL/SURGICAL HISTORY: Cardiovascular disease. Hypertension. Glioblastoma. Chemotherapy. Cran iotomy. RADIATION DOSE: 35.97 CTDI (mGy) COMPARISON: [facility] – [place], MRI BRAIN W & W/O CONTRAST, 01/30/2018. . TECHNIQUE: CT of the head without contrast. Using automated exposure control and adjustment of the mA and/or kV according to patient size, radiation dose was kept as low as reasonably achievable to ob tain optimal diagnostic quality images. FINDINGS: The patient has a history of intracranial mass, and there is a large area of hypodensity in the right temporal, occipital and frontoparietal regions with mass effect and encasement of the posterior horn of right lateral ventricle. There is mild ventriculomegaly of the left lateral ventricle and tempora l horn again seen. There are no signs of intracranial hemorrhage. Right parietal craniotomy noted. Th ere is midline shift from right to left measuring 6.7 mm. The patient has a tectal lipoma again noted . CONCLUSION: 1. Right cerebral mass again seen with midline shift. Electronically signed by: Mathew Reis MD 03/31/2018 8:07 PM EDT
[2018-03-31 20:14] LABS: ALT (GPT) 31 U/L (12-78); C-REACTIVE PROTEIN LESS THAN 0.29 MG/DL (0.00-0.30)
[2018-03-31 20:22] LABS: ALBUMIN 3.2 GM/DL (3.4-5.0); ALKALINE PHOSPHATASE 98 U/L (45-117); AST (GOT) 20 U/L (15-37); BICARBONATE 21.3 MEQ/L (21.0-32.0); BLOOD UREA NITROGEN 15 MG/DL (7-18); CALCIUM 9.1 MG/DL (8.5-10.1); CHLORIDE 101 MEQ/L (98-107); CREATININE 1.31 MG/DL (0.60-1.30); GLOMERULAR FILTRATION RATE 53 ML/MIN (>89); GLUCOSE,RANDOM 115 MG/DL (74-106); MAGNESIUM 2.6 MG/DL (1.5-2.5); SODIUM (NA) 134 MEQ/L (136-145); TOTAL BILIRUBIN ADULT 0.4 MG/DL (0.2-1.0); TOTAL PROTEIN 6.5 GM/DL (6.4-8.2); TROPONIN I LESS THAN 0.02 NG/ML (0.02-0.05)
[2018-03-31 20:28] LABS: BILIRUBIN, URINE NEG (NEG); BLOOD, URINE NEG (NEG); GLUCOSE,URINE NEG (NEG); KETONE, URINE NEG (NEG); MUCUS URINE MOD /lpf (OCC); NITRITE,URINE NEG (NEG); PH, URINE 5.5 (5.0-8.5); URIC ACID CRYSTALS, URINE FEW /hpf; URINE COLOR YELLOW (YELLW/STRAW); URINE LEUKOCYTE ESTERASE NEG (NEG)
[2018-03-31 20:35] LABS: PROTHROMBIN TIME - PATIENT 10.1 SEC (9.8-11.6)
[2018-03-31 20:41] VITALS: BP 111/74; PULSE 58; RESP 18; O2SAT 96
[2018-03-31] MEDS ORDERED: DEXAMETHASONE SOD PHOS 4 MG/ML VIAL IV PUSH ONE (21:15)
--- NOTE | 2018-03-31 21:57 | HHI.HP ---
[facility] Service Neurosurgery Primary Care Physician Eric Foss DO Chief Complaint: Increasing confusion, lethargy, gait difficulty 1-2 weeks History of Present Illness The patient is a 77-year-old male who presented to [facility] emergency room on 01/31/2018 with complaint of approximately 1 week of confusion and left hemiparesis and visual loss. An MRI revealed a greater than 6 cm right occipital mass extending to the right ventricle. The patient underwent a right temporoparietal craniotomy for resection of the neoplasm on 02/02/2018 with pathology consistent with high-grade glioma. Following discharge, he has undergone 3 weeks of outpatient radiation therapy with concurrent Temodar treatment. In the past week the patient's Decadron has been decreased from 1 mg to 0.5 mg daily. His states that in the past week the patient has been somewhat more confused with increased expressive speech deficit, increased gait unsteadiness, and increased lethargy. He has no complaint of headache nausea. No fevers chills. Review of Systems Constitutional: COMPLAINS OF: Fatigue Eyes: COMPLAINS OF: Vision loss Ears, nose, mouth, throat: COMPLAINS OF: Hearing loss Respiratory: DENIES: Shortness of breath Cardiovascular: DENIES: Chest pain Gastrointestinal: DENIES: Diarrhea, Nausea Musculoskeletal: COMPLAINS OF: Back pain, DENIES: Joint pain Neurologic: COMPLAINS OF: Abnormal gait, Poor Balance, DENIES: Headache, Seizures Psychiatric: COMPLAINS OF: Confusion Past Family Social History Allergies: Coded Allergies: No Known Allergies (Unverified Allergy, Unknown, 01/30/18) Past Medical History Hypertension Chronic back pain Arthritis Glioblastoma Past Surgical History Craniotomy for resection glioblastoma January 2018. L5-S1 resection synovial cyst 2016 Cataracts 2015 Right knee arthroplasty 2013 Reported Medications Reported Meds & Active Scripts Active Protonix (Pantoprazole Sodium) 40 Mg Tab 40 Mg PO DAILY Dexamethasone 4 Mg Tab 4 Mg PO BID [place] (Hydrocodone-Acetaminophen) 5 Mg-325 Mg Tab 1 Tab PO Q6H PRN Reported Meloxicam 15 Mg Tab 15 Mg PO DAILY Calcium 1000 + D (Calcium Carbonate-Cholecalciferol) 1,000-800 Mg-Unit Tab 1 Tab PO DAILY Family History Negative for cancer Social History Lives with his No history of smoking. Occasional alcohol Physical Exam Vital Signs Vital Signs Date Time Temp Pulse Resp B/P (MAP) Pulse Ox O2 Delivery O2 Flow Rate FiO2 03/31/18 20:41 58 18 111/74 (86) 96 Nasal Cannula 2.00 03/31/18 18:55 98.5 93 17 136/88 (104) 96 Nasal Cannula 2.00 03/31/18 18:40 98.9 91 20 101/75 (84) 94 Physical Exam General: Normally developed elderly gentleman, no apparent distress. HEENT: Well-healed scalp incision. Sclera clear nonicteric. Oropharynx clear Respirations: Clear to auscultation Cardiac: Regular rhythm without murmur Abdomen: Soft, nontender Extremities: Mild distal lower extremity edema without cyanosis Neurologic: Mild lethargy Moderate slowing of speech. Mild dysarthria Moderate confusion. Poor judgment and insight Answers some simple questions appropriately Oriented to hospital, knows his family. Mostly inappropriate conversation. Extraocular movements intact Appears to have homonymous left hemianopsia Conjugate extraocular movements Sensation intact all extremities Good strength all extremity major flexion-extension groups Laboratory Laboratory Tests Test 03/31/18 19:25 White Blood Count 6.6 Red Blood Count 4.39 Hemoglobin 13.5 Hematocrit 39.6 Mean Corpuscular Volume 90.3 Mean Corpuscular Hemoglobin 30.7 Mean Corpuscular Hemoglobin Concent 34.0 Red Cell Distribution Width 14.5 Platelet Count 317 Mean Platelet Volume 6.6 Neutrophils (%) (Auto) 64.0 Lymphocytes (%) (Auto) 19.7 Monocytes (%) (Auto) 13.6 Eosinophils (%) (Auto) 1.5 Basophils (%) (Auto) 1.2 Neutrophils # (Auto) 4.2 Lymphocytes # (Auto) 1.3 Monocytes # (Auto) 0.9 Eosinophils # (Auto) 0.1 Basophils # (Auto) 0.1 CBC Comment DIFF FINAL Differential Comment Prothrombin Time 10.1 Prothromb Time International Ratio 1.0 Activated Partial Thromboplast Time 20.5 Urine Color YELLOW Urine Turbidity CLOUDY Urine pH 5.5 Urine Specific [place] 1.022 Urine Protein NEG Urine Glucose (UA) NEG Urine Ketones NEG Urine Occult Blood NEG Urine Nitrite NEG Urine Bilirubin NEG Urine Urobilinogen LESS THAN 2.0 Urine Leukocyte Esterase NEG Urine RBC LESS THAN 1 Urine WBC 1 Urine Uric Acid Crystals FEW Urine Mucus MOD Microscopic Urinalysis Comment CULT NOT INDICATED Blood Urea Nitrogen 15 Creatinine 1.31 Random Glucose 115 Total Protein 6.5 Albumin 3.2 Calcium Level 9.1 Magnesium Level 2.6 Alkaline Phosphatase 98 Aspartate Amino Transf (AST/SGOT) 20 Alanine Aminotransferase (ALT/SGPT) 31 Total Bilirubin 0.4 Sodium Level 134 Potassium Level 4.3 Chloride Level 101 Carbon Dioxide Level 21.3 Anion Gap 12 Estimat Glomerular Filtration Rate 53 Ammonia 18 Total Creatine Kinase 52 Troponin I LESS THAN 0.02 C-Reactive Protein LESS THAN 0.29 Lipase 222 Result Diagram: 03/31/18192403/31/181924 Imaging 03/31/2018 CT scan head images reveal significant right parietal occipital edema with approximately 8 mm midline shift, improved compared to prior preoperative MRI of January [address] 03/31/181914 Signed Impressions: CONCLUSION: 1. Right cerebral mass again seen with midline shift. Chest X-Ray 03/31/181914 Signed Impressions: CONCLUSION: Negative examination. Caprini VTE Risk Assessment Caprini VTE Risk Assessment: Mod/High Risk (score >= 2) Caprini Risk Assessment Model Point Value = 1 Point Value = 2 Point Value = 3 Point Value = 5 Age 41-60 Minor surgery BMI > 25 kg/m2 Swollen legs Varicose veins or History of unexplained or recurrent spontaneous Oral contraceptives or hormone replacement Sepsis (< 1 month) Serious lung disease, including pneumonia (< 1 month) Abnormal pulmonary function Acute myocardial infarction Congestive heart failure (< 1 month) History of inflammatory bowel disease Medical patient at bed rest Age 61-74 Arthroscopic surgery Major open surgery (> 45 min) Laparoscopic surgery (> 45 min) Malignancy Confined to bed (> 72 hours) Immobilizing plaster cast Central venous access Age >= 75 History of VTE Family history of VTE Factor V Leiden Prothrombin [id number] Lupus anticoagulant Anticardiolipin antibodies Elevated serum homocysteine Heparin-induced thrombocytopenia Other congenital or acquired thrombophilia Stroke (< 1 month) Elective arthroplasty Hip, pelvis, or leg fracture Acute spinal cord injury (< 1 month) Prophylaxis Regimen Total Risk Factor Score Risk Level Prophylaxis Regimen 0-1 Low Early ambulation 2 Moderate Order ONE of the following: *Sequential Compression Device (SCD) *Heparin 5000 units SQ BID 3-4 Higher Order ONE of the following medications: *Heparin 5000 units SQ TID *Enoxaparin/Lovenox 40 mg SQ daily (WT < 150 kg, CrCl > 30 mL/min) *Enoxaparin/Lovenox 30 mg SQ daily (WT < 150 kg, CrCl > 10-29 mL/min) *Enoxaparin/Lovenox 30 mg SQ BID (WT < 150 kg, CrCl > 30 mL/min) AND/OR *Sequential Compression Device (SCD) 5 or more Highest Order ONE of the following medications: *Heparin 5000 units SQ TID (Preferred with Epidurals) *Enoxaparin/Lovenox 40 mg SQ daily (WT < 150 kg, CrCl > 30 mL/min) *Enoxaparin/Lovenox 30 mg SQ daily (WT < 150 kg, CrCl > 10-29 mL/min) *Enoxaparin/Lovenox 30 mg SQ BID (WT < 150 kg, CrCl > 30 mL/min) AND *Sequential Compression Device (SCD) Assessment and Plan Assessment and Plan Impression: 1. Right occipital-intraventricular high-grade glioma. Plan: Discussed with the family in the emergency room. Treatment options discussed. Due to his significant change in mental status and gait difficulty with increased risk of fall, patient and family agree with admission for further evaluation including follow-up MRI of the brain, initiation of IV Decadron, physical therapy evaluation. Laz Koenig MD Mar 31, 2018 21:57
[2018-03-31] MEDS ORDERED: DEXAMETHASONE SOD PHOS 4 MG/ML VIAL IV PUSH SCH (22:00)
[2018-03-31 23:58] VITALS: BP 137/87; PULSE 72; RESP 20; TEMP 98; O2SAT 98
[2018-04-01 03:09] VITALS: BP 103/73; PULSE 73; RESP 16; TEMP 98.4; O2SAT 92
[2018-04-01 05:21] LABS: AUTOMATED NEUTROPHIL # 5.5 TH/MM3 (1.8-7.7); BASOPHIL % 0.3 % (0.0-2.0); EOSINOPHIL % 0.1 % (0.0-4.0); HEMATOCRIT 41.2 % (39.0-51.0); HEMOGLOBIN 14.1 GM/DL (13.0-17.0); LYMPH % 18.6 % (9.0-44.0); LYMPHOCYTE # 1.3 TH/MM3 (1.0-4.8); MEAN CORPUSCULAR HEMOGLOBIN 31.2 PG (27.0-34.0); MEAN CORPUSCULAR HGB CONC 34.3 % (32.0-36.0); MEAN PLATELET VOLUME 6.9 FL (7.0-11.0); MONO % 4.6 % (0.0-8.0); MONOCYTE # 0.3 TH/MM3 (0-0.9); NEUT % 76.4 % (16.0-70.0); PLATELET COUNT 305 TH/MM3 (150-450); RED BLOOD COUNT 4.53 MIL/MM3 (4.50-5.90); RED CELL DISTRIBUTION WIDTH 14.1 % (11.6-17.2); WHITE BLOOD COUNT 7.3 TH/MM3 (4.0-11.0)
[2018-04-01 05:28] LABS: BICARBONATE 22.9 MEQ/L (21.0-32.0); CALCIUM 8.8 MG/DL (8.5-10.1); CREATININE 1.25 MG/DL (0.60-1.30)
[2018-04-01] MEDS: DEXAMETHASONE SOD PHOS 4 MG/ML VIAL IV PUSH SCH ×2 (06:17→15:47)
[2018-04-01 08:42] VITALS: BP 134/69; PULSE 90; RESP 18; TEMP 98.8; O2SAT 95
[2018-04-01] MEDS ORDERED: CALCIUM CARBONATE CHOLECALCIFEROL PO SCH (09:00)
[2018-04-01] MEDS ORDERED: GADODIAMIDE PF 287 MG/ML 20 ML VIAL (for RAD MRI) IVCONTRAST ONE (09:06)
[2018-04-01] MEDS: CALCIUM/VITAMIN D 250 MG/125 U TAB PO SCH ×2 (09:23→21:47)
[2018-04-01] MEDS: PANTOPRAZOLE SOD 40 MG DELAYED RELEASE TAB PO SCH (09:23)
[2018-04-01] MEDS ORDERED: LEVE500T8 PO (09:26)
--- NOTE | 2018-04-01 09:58 | RADRPT ---
EXAM DATE: 04/01/2018 8:58 AM EDT AGE/SEX: 77 years / Male INDICATIONS: Altered mental status. CLINICAL DATA: This is the patient's subsequent encounter. Patient reports that signs and symptoms h ave been present for 2 days and indicates a pain score of 0/10. MEDICAL/SURGICAL HISTORY: . Glioblastoma. Craniotomy. Knee replacement. Spinal surgery. COMPARISON: [facility] [place] & W/O CONTRAST, 01/30/2018. . TECHNIQUE: Multiplanar, multisequence examination of the brain was performed without and with 16 ml O mniscan (gadodiamide) contrast as a single exam dose. FINDINGS: There is a worsening appearance when compared to the prior examination. The large heterogeneously enh ancing mass involving the right occipital lobe and right temporal lobe has increased in size from the prior study. There is also an increase in the thickness of the soft tissue component in this cavitar y mass. For example the component extending along the temporal lobe adjacent to lateral ventricle pre viously measured 5.1 x 2.7 cm and now measures 7.3 x 3.4 cm. There is a second mass in the quadrigemi nal plate cistern just to left of midline with similar enhancing characteristics. This mass is unchan ged from the prior exam. It measures 1.8 x 1.1 x 0.7 cm. The edema associated with the right temporoo ccipital mass has decreased slightly. There is complete compression of the temporal horn of the later al ventricle. There is right to left midline shift of 7 mm where it previously measured 12 mm. No hem orrhage or acute infarction.. CONCLUSION: 1. Enlargement of the right temporal occipital mass consistent with glioblastoma. The midline shift and edema have decreased slightly. 2. Stable mass involving the quadrigeminal plate cistern. Electronically signed by: Og Bull MD 04/01/2018 9:57 AM EDT
[2018-04-01 12:14] VITALS: BP 113/72; PULSE 75; RESP 18; TEMP 98.7; O2SAT 93
--- NOTE | 2018-04-01 12:18 | HHI.NSPN ---
(Flaco Caballero) History Chief Complaint: Confusion and difficulty walking. (Flaco Caballero) Interval History 03/31: The patient is a 77-year-old male who presented to [facility] emergency room on 01/31/2018 with complaint of approximately 1 week of confusion and left hemiparesis and visual loss. An MRI revealed a greater than 6 cm right occipital mass extending to the right ventricle. The patient underwent a right temporoparietal craniotomy for resection of the neoplasm on 02/02/2018 with pathology consistent with high-grade glioma. Following discharge, he has undergone 3 weeks of outpatient radiation therapy with concurrent Temodar treatment. In the past week the patient's Decadron has been decreased from 1 mg to 0.5 mg daily. His states that in the past week the patient has been somewhat more confused with increased expressive speech deficit, increased gait unsteadiness, and increased lethargy. He has no complaint of headache nausea. No fevers chills. 04/01: The patient is awake and alert when seen. He states that he has confusion and difficulty walking. He denied any headache or dizziness. He also denied any pain, numbness or tingling to the extremities. Upon evaluation there were no sensorimotor deficits noted. His Cranial Nerves appeared intact. He was confused and had difficulty following some commands as well as having expressive aphasia. The did report that Physical Therapy has seen and ambulated the patient. (Flaco Caballero) Exam Results Vital Signs Date Time Temp Pulse Resp B/P (MAP) Pulse Ox O2 Delivery O2 Flow Rate FiO2 04/01/18 08:42 98.8 90 18 134/69 (90) 95 04/01/18 03:09 98.4 73 16 103/73 (83) 92 03/31/18 23:58 98.0 72 20 137/87 (104) 98 03/31/18 20:41 58 18 111/74 (86) 96 Nasal Cannula 2.00 03/31/18 18:55 98.5 93 17 136/88 (104) 96 Nasal Cannula 2.00 03/31/18 18:40 98.9 91 20 101/75 (17) 94 (Flaco Caballero) Physical Examination GENERAL: Awake & alert. Affect essentially normal. Readily interacts. No apparent distress. HEENT: Normocephalic, atraumatic. PERRLA 3 mm brisk, EOMI. MMM & pink, tongue midline to protrusion. NECK: Supple. No JVD. Trachea midline. CARDIOVASCULAR: S1S2 w/RRR w/o M/G/R. RESPIRATORY: CTAB w/o W/R/R, equal excursion, non-laboured, on RA. GASTROINTESTINAL: Abdomen soft, non-tender, positive bowel sounds. MUSCULOSKELETAL: COATES spontaneously & purposefully. No evident clubbing or deformity. Left lower leg abrasion w/intact dressing w/dried blood to it. NEUROLOGICAL: Awake & alert, oriented to person. Speech clear, thought process slow, difficulty expressing self and finding words. Follows commands but has difficulty understanding some even with demonstration. CN II through XII appear grossly intact. Sensation intact to light touch to all extremities. Motor strength is 5/5 to all major flexion & extension muscle groups appear, to include right hand intrinsics & extrinsics but the left hand intrinsics & extrinsics are 4/5. (Flaco Caballero) Lab, Micro, Other Results Recent Impressions Brain MRI 04/01/182156 Signed Impressions: CONCLUSION: 1. Enlargement of the right temporal occipital mass consistent with glioblasto ma. The midline shift and edema have decreased slightly. 2. Stable mass involving the quadrigeminal plate cistern. Head CT 03/31/181914 Signed Impressions: CONCLUSION: 1. Right cerebral mass again seen with midline shift. Chest X-Ray 03/31/181914 Signed Impressions: CONCLUSION: Negative examination. Laboratory Tests Test 03/31/18 19:25 04/01/18 04:34 White Blood Count 6.6 TH/MM3 7.3 TH/MM3 Red Blood Count 4.39 MIL/MM3 4.53 MIL/MM3 Hemoglobin 13.5 GM/DL 14.1 GM/DL Hematocrit 39.6 % 41.2 % Mean Corpuscular Volume 90.3 FL 91.0 FL Mean Corpuscular Hemoglobin 30.7 PG 31.2 PG Mean Corpuscular Hemoglobin Concent 34.0 % 34.3 % Red Cell Distribution Width 14.5 % 14.1 % Platelet Count 317 TH/MM3 305 TH/MM3 Mean Platelet Volume 6.6 FL 6.9 FL Neutrophils (%) (Auto) 64.0 % 76.4 % Lymphocytes (%) (Auto) 19.7 % 18.6 % Monocytes (%) (Auto) 13.6 % 4.6 % Eosinophils (%) (Auto) 1.5 % 0.1 % Basophils (%) (Auto) 1.2 % 0.3 % Neutrophils # (Auto) 4.2 TH/MM3 5.5 TH/MM3 Lymphocytes # (Auto) 1.3 TH/MM3 1.3 TH/MM3 Monocytes # (Auto) 0.9 TH/MM3 0.3 TH/MM3 Eosinophils # (Auto) 0.1 TH/MM3 0.0 TH/MM3 Basophils # (Auto) 0.1 TH/MM3 0.0 TH/MM3 CBC Comment DIFF FINAL DIFF FINAL Differential Comment Prothrombin Time 10.1 SEC Prothromb Time International Ratio 1.0 RATIO Activated Partial Thromboplast Time 20.5 SEC Urine Color YELLOW Urine Turbidity CLOUDY Urine pH 5.5 Urine Specific [place] 1.022 Urine Protein NEG mg/dL Urine Glucose (UA) NEG mg/dL Urine Ketones NEG mg/dL Urine Occult Blood NEG Urine Nitrite NEG Urine Bilirubin NEG Urine Urobilinogen LESS THAN 2.0 MG/DL Urine Leukocyte Esterase NEG Urine RBC LESS THAN 1 /hpf Urine WBC 1 /hpf Urine Uric Acid Crystals FEW /hpf Urine Mucus MOD /lpf Microscopic Urinalysis Comment CULT NOT INDICATED Blood Urea Nitrogen 15 MG/DL 12 MG/DL Creatinine 1.31 MG/DL 1.25 MG/DL Random Glucose 115 MG/DL 153 MG/DL Total Protein 6.5 GM/DL Albumin 3.2 GM/DL Calcium Level 9.1 MG/DL 8.8 MG/DL Magnesium Level 2.6 MG/DL Alkaline Phosphatase 98 U/L Aspartate Amino Transf (AST/SGOT) 20 U/L Alanine Aminotransferase (ALT/SGPT) 31 U/L Total Bilirubin 0.4 MG/DL Sodium Level 134 MEQ/L 137 MEQ/L Potassium Level 4.3 MEQ/L 4.8 MEQ/L Chloride Level 101 MEQ/L 103 MEQ/L Carbon Dioxide Level 21.3 MEQ/L 22.9 MEQ/L Anion Gap 12 MEQ/L 11 MEQ/L Estimat Glomerular Filtration Rate 53 ML/MIN 56 ML/MIN Ammonia 18 MCMOL/L Total Creatine Kinase 52 U/L Troponin I LESS THAN 0.02 NG/ML C-Reactive Protein LESS THAN 0.29 MG/DL B-Type Natriuretic Peptide 31 PG/ML Lipase 222 U/L (Flaco Caballero) Medical Decision Making Impression and Plan Impression: 1. Right occipital-intraventricular high-grade glioma. Patient doing well. Remains confused with expressive & receptive aphasia. No evident CN or sensorimotor deficits evident. Reviewed labs for today. Sodium 137. eGFR 56. Physical Therapy recommends further therapy as an outpatient vs [facility]. MRI brain demonstrated enlargement of the right temporooccipital mass w/slight decrease in midline shift & edema, c/w glioblastoma. Stable quadrigeminal plate cistern mass. Plan: Neuro checks q4h. Stat CT brain for any decline in neuro status. Vital signs q4h. Dexamethasone 4 mg IV q8h. Mobilise patient w/assistance. Physical Therapy eval & tx. Regular diet. Mechanical DVT prophylaxis. Wound care QD to left lower leg w/normal saline & dressing. Consider Speech Therapy eval & tx. (Flaco Caballero) Attending Statement The exam, history, and the medical decision-making described in the above note were completed with the assistance of the mid-level provider. I reviewed and agree with the findings presented. I attest that I had a [id number] encounter with the patient on the same day, and personally performed and documented my assessment and findings in the medical record. On my examination of 04/01/2018, patient a little more alert, but remains with significant confusion. His family states that he was able to ambulate a little bit better today. Review of his MRI brain images from 04/01/2018 reviewed with the family. There is early extensive recurrence of the right parieto-occipital primarily intraventricular GBM with persistent edema and mass-effect. No obstructive hydrocephalus. I had a long discussion with the family on 04/01/2018 regarding the findings and treatment options. His overall prognosis appears quite poor considering his decline in neurologic function and the significant early recurrence of the neoplasm. They request hospice evaluation. (Laz Koenig MD) Flaco Caballero Apr 01, 2018 12:18 Laz Koenig MD Apr 02, 2018 17:35
[2018-04-01 16:43] VITALS: BP 108/61; PULSE 82; RESP 18; TEMP 97.7; O2SAT 93
--- NOTE | 2018-04-01 19:12 | EKG ---
Date Performed: 03/31/2018 Time Performed: 19:00:07 PTAGE: 77 years EKG: Sinus rhythm WITH OCCASIONAL SUPRAVENTRICULAR PREMATURE COMPLEXES INDETERMINATE AXIS RIGHT BUNDLE BRANCH BLOCK AB NORMAL ECG PREVIOUS TRACING : 01/30/2018 22.21 Since the previous tracing, no significant change noted DOCTOR: Prasanna Pollock Interpretating Date/Time 04/01/2018 19:12:04
[2018-04-01 21:32] VITALS: BP 122/69; PULSE 74; RESP 15; TEMP 98.6; O2SAT 95
[2018-04-01] MEDS: levETIRAcetam 500 MG TAB PO SCH (21:47)
[2018-04-01] MEDS: DEXAMETHASONE 4 MG TAB PO SCH (21:47)
[2018-04-02] MEDS: ACETAMINOPHEN/HYDROcodone 325 MG/5 MG TAB PO PRN ×3 (02:55→20:58)
[2018-04-02 04:44] VITALS: BP 132/77; PULSE 62; RESP 15; TEMP 98.2; O2SAT 92
[2018-04-02 09:26] VITALS: BP 113/78; PULSE 72; RESP 18; TEMP 97.9; O2SAT 94
[2018-04-02] MEDS: PANTOPRAZOLE SOD 40 MG DELAYED RELEASE TAB PO SCH (09:31)
[2018-04-02] MEDS: levETIRAcetam 500 MG TAB PO SCH ×2 (09:31→20:59)
[2018-04-02] MEDS: CALCIUM/VITAMIN D 250 MG/125 U TAB PO SCH ×2 (09:31→20:58)
[2018-04-02] MEDS: TAMSULOSIN HCL 0.4 MG CAP PO SCH (09:31)
[2018-04-02] MEDS: DEXAMETHASONE 4 MG TAB PO SCH ×2 (09:31→20:58)
--- NOTE | 2018-04-02 11:34 | HHI.NSPN ---
(Flaco Caballero) History Chief Complaint: Unable to obtain due to patient's mental status. (Flaco Caballero) Interval History 03/31: The patient is a 77-year-old male who presented to [facility] emergency room on 01/31/2018 with complaint of approximately 1 week of confusion and left hemiparesis and visual loss. An MRI revealed a greater than 6 cm right occipital mass extending to the right ventricle. The patient underwent a right temporoparietal craniotomy for resection of the neoplasm on 02/02/2018 with pathology consistent with high-grade glioma. Following discharge, he has undergone 3 weeks of outpatient radiation therapy with concurrent Temodar treatment. In the past week the patient's Decadron has been decreased from 1 mg to 0.5 mg daily. His states that in the past week the patient has been somewhat more confused with increased expressive speech deficit, increased gait unsteadiness, and increased lethargy. He has no complaint of headache nausea. No fevers chills. 04/01: The patient is awake and alert when seen. He states that he has confusion and difficulty walking. He denied any headache or dizziness. He also denied any pain, numbness or tingling to the extremities. Upon evaluation there were no sensorimotor deficits noted. His Cranial Nerves appeared intact. He was confused and had difficulty following some commands as well as having expressive aphasia. The did report that Physical Therapy has seen and ambulated the patient. 04/02: When seen the patient had his eyes closed but opened them to voice. When asked how his confusion was he stated that this practitioner was a doctor ( logically given the white lab coat) and he saw me yesterday. He was not able to answer where he was even when asked specific type of buildings/businesses. He confabulated a story based upon that list. There was no change in his neuro exam from yesterday. His expressed concerns because the patient was up all night and agitated, even getting out of bed and throwing a chair at his son. She would like to speak with Palliative Care. (Flaco Caballero) Exam Results 03/31/18 03/31/18 04/01/18 04/01/18 04/02/18 04/02/18 06:00 18:00 06:00 18:00 06:00 18:00 Output Total 175 ml 300 ml Balance -175 ml -300 ml Output Urine Total 175 ml 300 ml # Bowel Movements 1 Vital Signs Date Time Temp Pulse Resp B/P (MAP) Pulse Ox O2 Delivery O2 Flow Rate FiO2 04/02/18 09:26 97.9 72 18 113/78 (90) 94 04/02/18 04:44 98.2 62 15 132/77 (95) 92 04/01/18 21:32 98.6 74 15 122/69 (86) 95 04/01/18 16:43 97.7 82 18 108/61 (77) 93 04/01/18 12:14 98.7 75 18 113/72 (86) 93 04/01/18 08:42 98.8 90 18 134/69 (90) 95 04/01/18 03:09 98.4 73 16 103/73 (83) 92 03/31/18 23:58 98.0 72 20 137/87 (104) 98 03/31/18 20:41 58 18 111/74 (86) 96 Nasal Cannula 2.00 03/31/18 18:55 98.5 93 17 136/88 (104) 96 Nasal Cannula 2.00 03/31/18 18:40 98.9 91 20 101/75 (84) 94 (Flaco Caballero) Physical Examination GENERAL: Eyes closed but opens to voice. Affect essentially normal. Readily interacts. No apparent distress. HEENT: Normocephalic, atraumatic. PERRLA 3 mm brisk, EOMI. MMM & pink, tongue midline to protrusion. NECK: Supple. No JVD. Trachea midline. MUSCULOSKELETAL: COATES spontaneously & purposefully. No evident clubbing or deformity. Left lower leg abrasion w/intact dressing. NEUROLOGICAL: Awake & alert, oriented to person. Speech clear, difficulty expressing self and finding words, confused and confabulating story based upon questions asked. Follows commands but has difficulty understanding some even with demonstration. CN II through XII appear grossly intact. Sensation intact to light touch to all extremities. Motor strength is 5/5 to all major flexion & extension muscle groups appear. (Flaco Caballero) Lab, Micro, Other Results Recent Impressions Brain MRI 04/01/182156 Signed Impressions: CONCLUSION: 1. Enlargement of the right temporal occipital mass consistent with glioblasto ma. The midline shift and edema have decreased slightly. 2. Stable mass involving the quadrigeminal plate cistern. Head CT 03/31/181914 Signed Impressions: CONCLUSION: 1. Right cerebral mass again seen with midline shift. Chest X-Ray 03/31/181914 Signed Impressions: CONCLUSION: Negative examination. Laboratory Tests Test 03/31/18 19:25 04/01/18 04:34 White Blood Count 6.6 TH/MM3 7.3 TH/MM3 Red Blood Count 4.39 MIL/MM3 4.53 MIL/MM3 Hemoglobin 13.5 GM/DL 14.1 GM/DL Hematocrit 39.6 % 41.2 % Mean Corpuscular Volume 90.3 FL 91.0 FL Mean Corpuscular Hemoglobin 30.7 PG 31.2 PG Mean Corpuscular Hemoglobin Concent 34.0 % 34.3 % Red Cell Distribution Width 14.5 % 14.1 % Platelet Count 317 TH/MM3 305 TH/MM3 Mean Platelet Volume 6.6 FL 6.9 FL Neutrophils (%) (Auto) 64.0 % 76.4 % Lymphocytes (%) (Auto) 19.7 % 18.6 % Monocytes (%) (Auto) 13.6 % 4.6 % Eosinophils (%) (Auto) 1.5 % 0.1 % Basophils (%) (Auto) 1.2 % 0.3 % Neutrophils # (Auto) 4.2 TH/MM3 5.5 TH/MM3 Lymphocytes # (Auto) 1.3 TH/MM3 1.3 TH/MM3 Monocytes # (Auto) 0.9 TH/MM3 0.3 TH/MM3 Eosinophils # (Auto) 0.1 TH/MM3 0.0 TH/MM3 Basophils # (Auto) 0.1 TH/MM3 0.0 TH/MM3 CBC Comment DIFF FINAL DIFF FINAL Differential Comment Prothrombin Time 10.1 SEC Prothromb Time International Ratio 1.0 RATIO Activated Partial Thromboplast Time 20.5 SEC Urine Color YELLOW Urine Turbidity CLOUDY Urine pH 5.5 Urine Specific [place] 1.022 Urine Protein NEG mg/dL Urine Glucose (UA) NEG mg/dL Urine Ketones NEG mg/dL Urine Occult Blood NEG Urine Nitrite NEG Urine Bilirubin NEG Urine Urobilinogen LESS THAN 2.0 MG/DL Urine Leukocyte Esterase NEG Urine RBC LESS THAN 1 /hpf Urine WBC 1 /hpf Urine Uric Acid Crystals FEW /hpf Urine Mucus MOD /lpf Microscopic Urinalysis Comment CULT NOT INDICATED Blood Urea Nitrogen 15 MG/DL 12 MG/DL Creatinine 1.31 MG/DL 1.25 MG/DL Random Glucose 115 MG/DL 153 MG/DL Total Protein 6.5 GM/DL Albumin 3.2 GM/DL Calcium Level 9.1 MG/DL 8.8 MG/DL Magnesium Level 2.6 MG/DL Alkaline Phosphatase 98 U/L Aspartate Amino Transf (AST/SGOT) 20 U/L Alanine Aminotransferase (ALT/SGPT) 31 U/L Total Bilirubin 0.4 MG/DL Sodium Level 134 MEQ/L 137 MEQ/L Potassium Level 4.3 MEQ/L 4.8 MEQ/L Chloride Level 101 MEQ/L 103 MEQ/L Carbon Dioxide Level 21.3 MEQ/L 22.9 MEQ/L Anion Gap 12 MEQ/L 11 MEQ/L Estimat Glomerular Filtration Rate 53 ML/MIN 56 ML/MIN Ammonia 18 MCMOL/L Total Creatine Kinase 52 U/L Troponin I LESS THAN 0.02 NG/ML C-Reactive Protein LESS THAN 0.29 MG/DL B-Type Natriuretic Peptide 31 PG/ML Lipase 222 U/L (Flaco Caballero) Medical Decision Making Impression and Plan Impression: 1. Right occipital-intraventricular high-grade glioma. Patient continues to do well. Remains confused with expressive & receptive aphasia. No evident CN or sensorimotor deficits evident. Physical Therapy recommends further therapy as an outpatient vs [facility]. MRI brain demonstrated enlargement of the right temporooccipital mass w/slight decrease in midline shift & edema, c/w glioblastoma. Stable quadrigeminal plate cistern mass. Plan: Neuro checks q4h. Stat CT brain for any decline in neuro status. Vital signs q4h. Dexamethasone 4 mg IV q8h. Mobilise patient w/assistance. Physical Therapy eval & tx. Regular diet. Mechanical DVT prophylaxis. Wound care QD to left lower leg w/normal saline & dressing. Palliative Care consult. (Flaco Caballero) Attending Statement The exam, history, and the medical decision-making described in the above note were completed with the assistance of the mid-level provider. I reviewed and agree with the findings presented. I attest that I had a [id number] encounter with the patient on the same day, and personally performed and documented my assessment and findings in the medical record. Patient remains awake but still quite confused on examination of 04/02/2018. Hospice and palliative care notes reviewed. Plan discharge on 04/03/2018, home with hospice care. (Laz Koenig MD) Flaco Caballero Apr 02, 2018 11:34 Laz Koenig MD Apr 02, 2018 17:38
[2018-04-02 12:18] VITALS: BP 97/60; PULSE 86; RESP 18; TEMP 98.9; O2SAT 93
--- NOTE | 2018-04-02 14:42 | PD.CONS ---
Consult Service Palliative Care Consult Requested By Amandeep SPICER . Primary Care Physician Eric Foss DO . Reason for Consultation a. To assist with evaluation and management of symptoms including: Confusion , agitation b. To assist medical decision maker(s) with: better understanding of current medical conditions; weighing benefits/burdens of medical treatment options; making medical treatment decisions. . HPI History of Present Illness 77-year-old male, with a history of high-grade glioblastoma first diagnosed 2 months ago and treated with radiation and Temodar, and history of degenerative arthritis and hypertension, presented to the emergency department because of worsening confusion and difficulty ambulating. The patient initially presented to the emergency department on 01/30/18 because of left arm and leg symptoms and some altered mental status, and scans revealed a 5 x 5 cm right occipital mass with a 1.2 cm midline shift. Further workup indicated no distant metastases, and the patient went to the operating room on 02/02/18 for craniotomy and subtotal resection of the tumor mass. Pathology revealed glioblastoma multiform , and the patient subsequently completed 3 weeks of radiation in conjunction with Temodar administration. The patient has been at home, but the last few days has become more confused. He was still able to ambulate but was having more difficulty getting around; he has had no recent falls. The patient returned to the emergency department on 04/01/18. Findings included: * Confusion, confabulations, rambling speech * Temp 98.5, pulse 58, respirations 18, blood pressure 111/74, O2 saturation 96 % on 2 L * White count 6.6, hemoglobin 13.5 * Urinalysis negative * Sodium 134, creatinine 1.31, albumin 3.2 * Chest x-ray unremarkable * CT scan with large mass effect The patient was started on IV Decadron and admitted to the hospital. Follow-up MRI revealed a tumor mass that it increased in size, now more than 7 cm in width. Midline shift was present. The patient became quite agitated during the night, combative at times, but is more calm but quite confused as I am seeing the patient this afternoon. Palliative Care was consulted to assist with symptom management, and to enter into discussions with the patient's /family regarding the illness, the prognosis, and the benefits and burdens of the various treatment choices. . Function/Cognitive Trajectory The patient was still able to ambulate at home prior to this hospitalization, but he was somewhat unsteady and would hold onto the wall as he walked. Confusion had become substantial in recent days. . Review of Systems ROS Limitations: Altered Mental Status Constitutional: DENIES: Fever, Weight loss Endocrine: DENIES: Polyuria Eyes: DENIES: Eye pain Ears, nose, mouth, throat: DENIES: Epistaxis Respiratory: DENIES: Cough, Shortness of breath Cardiovascular: DENIES: Chest pain, Palpitations Gastrointestinal: DENIES: Bloody stools, Diarrhea, Vomiting, Vomiting blood Genitourinary: COMPLAINS OF: Urgency, DENIES: Hematuria Musculoskeletal: COMPLAINS OF: Joint pain (Arthritic), DENIES: Back pain Integumentary: DENIES: Rash Hematologic/Lymphatics: DENIES: Lymphadenopathy Immunologic/Allergic: DENIES: Urticaria Neurologic: DENIES: Headache, Localized weakness, Paresthesias, Seizures Psychiatric: COMPLAINS OF: Confusion, Agitation Past Family Social History Coded Allergies: No Known Allergies (Unverified Allergy, Unknown, 01/30/18) Past Medical History * High-grade glioma diagnosed January 2018, status post radiation and Temodar treatment * Hypertension * History of scoliosis * History of degenerative joint disease . Past Surgical History * Right total knee replacement 2013 * Cataracts 2014 * Lumbar spine 11/17/15 * Craniotomy with subtotal resection and biopsy 02/02/18 . Reported Medications Reported Meds & Active Scripts Active Protonix (Pantoprazole Sodium) 40 Mg Tab 40 Mg PO DAILY Dexamethasone 4 Mg Tab 4 Mg PO BID [place] (Hydrocodone-Acetaminophen) 5 Mg-325 Mg Tab 1 Tab PO Q6H PRN Reported Levetiracetam 500 Mg Tab 500 Mg PO BID Meloxicam 15 Mg Tab 15 Mg PO DAILY Calcium 1000 + D (Calcium Carbonate-Cholecalciferol) 1,000-800 Mg-Unit Tab 1 Tab PO DAILY . Current Medications Medications (Trade) Dose Ordered Sig/Salvador Route Start Time Stop Time Status Last Admin ([place] 5-325 Mg) 1 tab Q6H PRN PO 03/31/18 22:00 04/02/18 09:31 (Protonix) 40 mg DAILY PO 04/01/18 09:00 04/02/18 09:31 ([place]scal-D 250-125) 500 mg BID PO 04/01/18 09:00 04/02/18 09:31 (Decadron) 4 mg Q12HR PO 04/01/18 21:00 04/02/18 09:31 (Keppra) 500 mg Q12HR PO 04/01/18 21:30 04/02/18 09:31 (Flomax) 0.4 mg DAILY PO 04/02/18 09:00 04/02/18 09:31 Family History The patient's father at age 58 of esophageal cancer, and his mother at age 89 of general debility/old age. There is no family history of brain tumor. . Substance Use Tobacco: None Alcohol: None Prescription med abuse: None Illicits: None . Psychosocial History The patient has lived in [place] for quite some time, and currently lives with and 1 of their sons. They have been 51 years, and have 2 sons, one living in [place] and one living in the home now to help. 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 . Spiritual/Cultural Factors The patient's reports that the patient has had a Episcopal of [employer] background, but has not been spiritual or scientologist in any way since the of his father. The patient's would like to have a agricultural chemist visit the patient, as she herself is quite spiritual and says "I am worried about his soul." . Living Will: Completed, but not made available Health Care Surrogate: Completed, but not made available Health Care Surrogate(s): Spouse Mariah . Documented care wishes: Patient reportedly has a living will with typical language . Today's verbally stated goals: Patient is confused and unable to discuss goals . Family/friends goals: The patient's /HCS reports that she has spoken with their sons and they have decided to transition to comfort measures at this time, requesting hospice services and DNR status. . Ethical and Legal Issues The patient is unable to make his own decisions. The patient now lacks capacity for decision-making, and it is very unlikely that he will regain that capacity. His is the reported designated healthcare surrogate. . Physical Exam Vital Signs Date Time Temp Pulse Resp B/P (MAP) Pulse Ox O2 Delivery O2 Flow Rate FiO2 04/02/18 12:18 98.9 86 18 97/60 (72) 93 04/02/18 11:36 20 04/02/18 09:26 97.9 72 18 113/78 (90) 94 04/02/18 04:44 98.2 62 15 132/77 (95) 92 04/01/18 21:32 98.6 74 15 122/69 (86) 95 04/01/18 16:43 97.7 82 18 108/61 (77) 93 Exam CONSTITUTIONAL/GENERAL: This is an adequately nourished patient, in no apparent distress. Confused, rambling TUBES/LINES/DRAINS: IV access SKIN: No jaundice, rashes, or lesions. Ecchymoses on upper extremities. No wounds seen anteriorly. Skin temperature appropriate. Not diaphoretic. HEAD: Atraumatic. Normocephalic. EYES: Pupils equal and round and reactive. Extraocular motions intact. No scleral icterus. No injection or drainage. Fundi not examined. ENT: Hearing grossly normal. Nose without bleeding or purulent drainage. Throat without visible erythema, exudates, masses, or lesions. NECK: Trachea midline. Supple, nontender. No palpable thyroid enlargement or nodularity. CARDIOVASCULAR: Regular rate and rhythm without murmurs, gallops, or rubs. No JVD. Peripheral pulses symmetric. RESPIRATORY/CHEST: Symmetric, unlabored respirations. Clear to auscultation. Breath sounds equal bilaterally. No wheezes, rales, or rhonchi. GASTROINTESTINAL: Abdomen soft, non-tender, nondistended. No hepato-splenomegaly , or palpable masses. No guarding. Bowel sounds present. GENITOURINARY: Without palpable bladder distension. An catheter in place. MUSCULOSKELETAL: Extremities without clubbing, cyanosis, or edema. No joint tenderness or effusion noted. No calf tenderness. No mottling or clubbing. LYMPHATICS: No palpable cervical or supraclavicular adenopathy. NEUROLOGICAL: Awake and alert. Motor and sensory grossly within normal limits. Follows simple commands. Confused about place and person, disjointed thought process and speech. Moves all extremities. PSYCHIATRIC: No obvious anxiety/depression. no apparent hallucinations or other psychotic thought process. . Diagnostic Tests Laboratory Laboratory Tests Test 03/31/18 19:25 04/01/18 04:34 White Blood Count 6.6 TH/MM3 (4.0-11.0) 7.3 TH/MM3 (4.0-11.0) Red Blood Count 4.39 MIL/MM3 (4.50-5.90) 4.53 MIL/MM3 (4.50-5.90) Hemoglobin 13.5 GM/DL (13.0-17.0) 14.1 GM/DL (13.0-17.0) Hematocrit 39.6 % (39.0-51.0) 41.2 % (39.0-51.0) Mean Corpuscular Volume 90.3 FL (80.0-100.0) 91.0 FL (80.0-100.0) Mean Corpuscular Hemoglobin 30.7 PG (27.0-34.0) 31.2 PG (27.0-34.0) Mean Corpuscular Hemoglobin Concent 34.0 % (32.0-36.0) 34.3 % (32.0-36.0) Red Cell Distribution Width 14.5 % (11.6-17.2) 14.1 % (11.6-17.2) Platelet Count 317 TH/MM3 (150-450) 305 TH/MM3 (150-450) Mean Platelet Volume 6.6 FL (7.0-11.0) 6.9 FL (7.0-11.0) Neutrophils (%) (Auto) 64.0 % (16.0-70.0) 76.4 % (16.0-70.0) Lymphocytes (%) (Auto) 19.7 % (9.0-44.0) 18.6 % (9.0-44.0) Monocytes (%) (Auto) 13.6 % (0.0-8.0) 4.6 % (0.0-8.0) Eosinophils (%) (Auto) 1.5 % (0.0-4.0) 0.1 % (0.0-4.0) Basophils (%) (Auto) 1.2 % (0.0-2.0) 0.3 % (0.0-2.0) Neutrophils # (Auto) 4.2 TH/MM3 (1.8-7.7) 5.5 TH/MM3 (1.8-7.7) Lymphocytes # (Auto) 1.3 TH/MM3 (1.0-4.8) 1.3 TH/MM3 (1.0-4.8) Monocytes # (Auto) 0.9 TH/MM3 (0-0.9) 0.3 TH/MM3 (0-0.9) Eosinophils # (Auto) 0.1 TH/MM3 (0-0.4) 0.0 TH/MM3 (0-0.4) Basophils # (Auto) 0.1 TH/MM3 (0-0.2) 0.0 TH/MM3 (0-0.2) CBC Comment DIFF FINAL DIFF FINAL Differential Comment Prothrombin Time 10.1 SEC (9.8-11.6) Prothromb Time International Ratio 1.0 RATIO Activated Partial Thromboplast Time 20.5 SEC (24.3-30.1) Urine Color YELLOW (YELLW/STRAW) Urine Turbidity CLOUDY (CLEAR) Urine pH 5.5 (5.0-8.5) Urine Specific [place] 1.022 (1.002-1.035) Urine Protein NEG mg/dL (NEG-TRACE) Urine Glucose (UA) NEG mg/dL (NEG) Urine Ketones NEG mg/dL (NEG) Urine Occult Blood NEG (NEG) Urine Nitrite NEG (NEG) Urine Bilirubin NEG (NEG) Urine Urobilinogen LESS THAN 2.0 MG/DL (LESS Urine Leukocyte Esterase NEG (NEG) Urine RBC LESS THAN 1 /hpf (0-3) Urine WBC 1 /hpf (0-5) Urine Uric Acid Crystals FEW /hpf (NONE) Urine Mucus MOD /lpf (OCC) Microscopic Urinalysis Comment CULT NOT INDICATED Blood Urea Nitrogen 15 MG/DL (7-18) 12 MG/DL (7-18) Creatinine 1.31 MG/DL (0.60-1.30) 1.25 MG/DL (0.60-1.30) Random Glucose 115 MG/DL (74-106) 153 MG/DL (74-106) Total Protein 6.5 GM/DL (6.4-8.2) Albumin 3.2 GM/DL (3.4-5.0) Calcium Level 9.1 MG/DL (8.5-10.1) 8.8 MG/DL (8.5-10.1) Magnesium Level 2.6 MG/DL (1.5-2.5) Alkaline Phosphatase 98 U/L (45-117) Aspartate Amino Transf (AST/SGOT) 20 U/L (15-37) Alanine Aminotransferase (ALT/SGPT) 31 U/L (12-78) Total Bilirubin 0.4 MG/DL (0.2-1.0) Sodium Level 134 MEQ/L (136-145) 137 MEQ/L (136-145) Potassium Level 4.3 MEQ/L (3.5-5.1) 4.8 MEQ/L (3.5-5.1) Chloride Level 101 MEQ/L (98-107) 103 MEQ/L (98-107) Carbon Dioxide Level 21.3 MEQ/L (21.0-32.0) 22.9 MEQ/L (21.0-32.0) Anion Gap 12 MEQ/L (5-15) 11 MEQ/L (5-15) Estimat Glomerular Filtration Rate 53 ML/MIN (>89) 56 ML/MIN (>89) Ammonia 18 MCMOL/L (11-32) Total Creatine Kinase 52 U/L (39-308) Troponin I LESS THAN 0.02 NG/ML C-Reactive Protein LESS THAN 0.29 MG/DL B-Type Natriuretic Peptide 31 PG/ML (0-100) Lipase 222 U/L (73-393) Result Diagram: 04/01/1843304/01/18433 Imaging Last Impressions Brain MRI 04/01/182156 Signed Impressions: CONCLUSION: 1. Enlargement of the right temporal occipital mass consistent with glioblasto ma. The midline shift and edema have decreased slightly. 2. Stable mass involving the quadrigeminal plate cistern. Head CT 03/31/181914 Signed Impressions: CONCLUSION: 1. Right cerebral mass again seen with midline shift. Chest X-Ray 03/31/181914 Signed Impressions: CONCLUSION: Negative examination. Patient/Family Conference Present at Family Conference: Patient's spouse Mariah . Family Conference Time (mins): 46 Family Conference Location: Bedside, Hallway Issues Discussed: * Palliative care role, purpose, approach * Hospice care role, purpose, approach * Additional medical, psychosocial, and spiritual history * Patients general health, functional status, and cognitive changes in the months leading up to the current hospitalization * Patient/family understanding of the current medical problems * Patient/family understanding of prognosis * Patients goals of care as best understood from advance directives and/or conversations and/or values * Current medical treatment options and benefits/burdens of those options * Likely scenarios comparing ongoing aggressive care with a transition to comfort measures only * Questions answered to the best of my ability * Palliative care contact information provided . 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 Spiritual: The patient's reports that the patient has had a Episcopal of [employer] background, but has not been spiritual or scientologist in any way since the of his father. The patient's would like to have a agricultural chemist visit the patient, as she herself is quite spiritual and says "I am worried about his soul." Legal: The patient now lacks capacity for decision-making, and it is very unlikely that he will regain that capacity. His is the reported designated healthcare surrogate. Ethical issues impacting care: None . Important Contacts /HCS: Mariah Krishna [phone] . Prognosis This patient is terminal, and he is appropriate for hospice services. . Code Status: No Code Plan * DO NOT RESUSCITATE * DECISION-MAKING: The patient now lacks capacity for decision-making, and it is very unlikely that he will regain that capacity. His is the reported designated healthcare surrogate. * GOALS: The patient's and their 2 sons have elected to transition to comfort care now, requesting initiation of hospice services and DNR status. * DNR order entered. * Rn Surgery consult requested. * Hospice consulted. * SYMPTOMS: I will add some PRN Haldol in case the patient becomes combative and more agitated again tonight. His pain is not significant at this point. * Palliative Care will continue to follow the patient during this hospitalization. . Time Spent Total Floor Time (mins): 78 Face to Face Time (mins): 26 >50% Counseling/Coord of Care: Yes (d/w hospice case manager and with Neurosurg SLITTER AND REWINDER (BT) ) Thank you for the opportunity to participate in the care of Mr. Krishna. Attestation To help prompt me to consider important information that might be impacting today's encounter and assessment, information from prior notes written by myself or my colleagues may have been "brought forward" into today's note. My signature on this note, however, is an attestation that I personally performed the exam, history, and/or decision-making noted today, and, unless otherwise indicated, the interactions with patient, family, and staff as well as the review of records all occurred today. I also attest that the listed assessment and stated plan reflect my best clinical judgment today based on the combination of historical information, prior notes, and today's exam/ interactions. When time spent is documented, it refers only to time spent today by the signer, or if indicated, combined time spent today by collaborating physician/nurse practitioner. Pamela Velasco MD Apr 02, 2018 14:42
[2018-04-02] MEDS ORDERED: DEXA4TAB PO (17:49)
[2018-04-02] MEDS ORDERED: TAMS5CAP PO (17:49)
[2018-04-02] MEDS ORDERED: LEVE500 PO (17:49)
--- NOTE | 2018-04-02 17:50 | HHI.DCPOC ---
Discharge Care Plan Diagnosis: (1) Glioma Your Health Problems Are: Difficulty with ADL Exercise Tolerance Loss of Movements Goals to Promote Your Health * To prevent worsening of your condition and complications * To maintain your health at the optimal level Directions to Meet Your Goals Take your medications as prescribed Follow your dietary instruction Follow activity as directed Keep your appointments as scheduled Take your immunizations and boosters as scheduled If your symptoms worsen call your PCP, if no PCP go to Urgent Care Center or Emergency Room Smoking is Dangerous to Your Health. Avoid second hand smoke Call the 24-hour hour crisis hotline for domestic abuse at Laz Koenig MD Apr 02, 2018 17:50
[2018-04-02 19:21] VITALS: BP 102/66; PULSE 72; RESP 18; TEMP 98; O2SAT 96
[2018-04-03] VITALS: BP 122/73; PULSE 67; RESP 18; TEMP 98.1; O2SAT 94
[2018-04-03 04:00] VITALS: BP 104/76; PULSE 60; RESP 18; TEMP 97.3; O2SAT 94
[2018-04-03 08:00] VITALS: BP 134/75; PULSE 72; RESP 17; TEMP 97.7; O2SAT 94
[2018-04-03] MEDS: PANTOPRAZOLE SOD 40 MG DELAYED RELEASE TAB PO SCH (09:00)
[2018-04-03] MEDS: levETIRAcetam 500 MG TAB PO SCH (09:48)
[2018-04-03] MEDS: TAMSULOSIN HCL 0.4 MG CAP PO SCH (09:48)
[2018-04-03] MEDS: CALCIUM/VITAMIN D 250 MG/125 U TAB PO SCH (09:48)
[2018-04-03] MEDS: DEXAMETHASONE 4 MG TAB PO SCH (09:48)
[2018-04-03 12:00] VITALS: BP 107/67; PULSE 85; RESP 16; TEMP 97.6; O2SAT 93
--- NOTE | 2018-04-06 17:35 | HHI.DS ---
Discharge Summary Admission Date Apr 01, 2018 at 18:41 Discharge Date: Apr 03, 2018 Admitting Diagnosis AMS, Unsteady gait, Intracranial mass with midline shift (1) High-grade glioblastoma, worsening/progressive in spite of recent radiation and Temodar Diagnosis: Principal Brief History The patient is a 77-year-old male who presented to [facility] emergency room on 01/31/2018 with complaint of approximately 1 week of confusion and left hemiparesis and visual loss. An MRI revealed a greater than 6 cm right occipital mass extending to the right ventricle. The patient underwent a right temporoparietal craniotomy for resection of the neoplasm on 02/02/2018 with pathology consistent with high-grade glioma. Following discharge, he has undergone 3 weeks of outpatient radiation therapy with concurrent Temodar treatment. In the past week the patient's Decadron has been decreased from 1 mg to 0.5 mg daily. His states that in the past week the patient has been somewhat more confused with increased expressive speech deficit, increased gait unsteadiness, and increased lethargy. He has no complaint of headache nausea. No fevers chills. Imaging Last Impressions Brain MRI 04/01/182156 Signed Impressions: CONCLUSION: 1. Enlargement of the right temporal occipital mass consistent with glioblasto ma. The midline shift and edema have decreased slightly. 2. Stable mass involving the quadrigeminal plate cistern. Head CT 03/31/181914 Signed Impressions: CONCLUSION: 1. Right cerebral mass again seen with midline shift. Chest X-Ray 03/31/181914 Signed Impressions: CONCLUSION: Negative examination. Hospital Course The patient presented with progressive symptoms of increased confusion and expressive speech deficit, increased gait unsteadiness, and increased lethargy. He has no complaint of headache nausea. No fevers chills. He has a previous history of craniotomy for resection of right temporoparietal glioblastoma with intraventricular extension. Repeat MRI during this admission has revealed significant progression of the right primarily temporal lobe lesion despite treatment with radiation therapy and Temodar. He was placed on additional intravenous steroids. Physical therapy consultation obtained. The patient's ambulation improved a little with steroids, but he has remained very confused during the hospitalization and more lethargic over the past week. The patient's progressive neurologic clinical changes are related to the rapid progression-recurrence of the right temporal glioblastoma with intraventricular extension. No significant obstructive hydrocephalus. Discussion with the patient's by neurosurgery and palliative care entailed , with the family indicating their desire for hospice care. Patient discharged to hospice home care on 04/03/2018. Pt Condition on Discharge: Stable Discharge Disposition: Hospice/ Home Discharge Instructions DIET: Follow Instructions for: As Tolerated, No Restrictions ACTIVITIES You can perform: Weight Bearing As Edmund Activities to Avoid: Lifting/Bending, Prolonged Standing Follow up Referrals: Hospice New Medications: Levetiracetam (Keppra) 500 Mg Tab 500 MG PO Q12HR for Seizure Control, #60 TAB 1 Refill Tamsulosin (Flomax) 0.4 Mg Cap 0.4 MG PO DAILY for Bladder Spasm, #30 CAP 1 Refill Continued Medications: Calcium Carbonate-Cholecalciferol (Calcium 1000 + D) 1,000-800 Mg-Unit Tab 1 TAB PO DAILY, TAB Dexamethasone (Dexamethasone) 4 Mg Tab 4 MG PO BID for brain mass, #30 TAB 0 Refills (This prescription has been renewed) Hydrocodone-Acetaminophen ([place]) 5 Mg-325 Mg Tab 1 TAB PO Q6H PRN for PAIN, #30 TAB 0 Refills Levetiracetam (Levetiracetam) 500 Mg Tab 500 MG PO BID for Control Seizures, #60 TAB 0 Refills Meloxicam (Meloxicam) 15 Mg Tab 15 MG PO DAILY for Arthritis Pain, #30 TAB 0 Refills Pantoprazole (Protonix) 40 Mg Tab 40 MG PO DAILY for Reflux, #30 TAB 0 Refills Laz Koenig MD Apr 06, 2018 17:35
--- NOTE | 2018-04-07 16:55 | PQ ---
Physician Query Response Document PATIENT: COLBY THEODORE : 1940 ADMIT DATE: 04/01/2018 6:41 PM DISCH DATE: 04/03/2018 1:15 PM RESPONDING PROVIDER #: [email or web address] QUERY TEXT: CDS Clarification Brain compression in the setting of right occipital-intraventricular high-grade glioma being treated with decadron 4 mg and neuro checks. Other explanation of clinical findings. Unable to determine (no explanation for clinical findings). Please clarify and document your clinical opinion in the progress notes and discharge summary includi ng the definitive and/or presumptive diagnosis (suspected or probable), related to the above clinical findings. Please include clinical findings supporting your diagnosis. Thank you, Val Gutierrez CDS: Val Gutierrez Patient Unit: [id number] Contact Number: CDS/PANTERA [facility] The patient's Clinical Indicators include: * Clinical Indicators: right to left midline shift of 7mm per MRI, altered mental status * Risk Factors: Right occipital-intraventricular high-grade glioma * Treatment: Decadron 4 mg, neuro checks. Query created by: Val Gutierrez on 04/02/2018 12:19 PM RESPONSE TEXT: Discharge summary dictated to reflect recurrent - progressive GBM as cause for clinical findings Electronically signed by: Colby Koenig MD 04/07/2018 4:51 PM
== END 2018-04-03 13:15 | disposition hospice, home (50) | DRG 54 ==
LOC: NEPC 18:24 → NEDA 22:00 → UNDOADMOB 22:01 → NEDA 22:01 → NEPFCDU 23:33 → OBSVTOIN 04-01 18:41 → N06A 04-02 17:48
PROVIDERS: ADMIT Neurological Surgery; ATTEND Neurological Surgery
DX: C71.4 Malignant neoplasm of occipital lobe (principal); G93.6 Cerebral edema; G81.94 Hemiplegia, unspecified affecting left nondominant side; R47.01 Aphasia; I45.10 Unspecified right bundle-branch block; R41.82 Altered mental status, unspecified; I10 Essential (primary) hypertension; G89.29 Other chronic pain; H54.7 Unspecified visual loss; R26.2 Difficulty in walking, not elsewhere classified; R35.0 Frequency of micturition; R39.15 Urgency of urination; M41.9 Scoliosis, unspecified; Z51.5 Encounter for palliative care; Z96.651 Presence of right artificial knee joint; M19.90 Unspecified osteoarthritis, unspecified site; Z87.442 Personal history of urinary calculi; Z92.3 Personal history of irradiation; Z66 Do not resuscitate
CPT/HCPCS: 70450; 70553; 71045; 80048; 80053; 81001; 82140; 82550; 83690; 83735; 83880; 84484; 85025; 85610; 85730; 86140; 93005; 94150; A9579; G8987-GP; G8988-GP; J1100; J8540